=== PATIENT | female | born 1960 | race Caucasian/White ===

== ENCOUNTER 2023-03-26 08:26 | Outpatient (RCR) | payer OTHER, SELFPAY | END 2023-03-26 23:59 | disposition home or self-care (01) | LOC: RPT 08:26 | PROVIDERS: ATTENDING PHYSICIAN Internal Medicine Gastroenterology; PRIMARYCARE PHYSICIAN Family Medicine | DX: M62.89 Other specified disorders of muscle (principal) | CPT/HCPCS: 97162; 97535 ==

== ENCOUNTER 2023-04-29 17:49 | Outpatient (RCR) | payer OTHER, SELFPAY | END 2023-04-29 23:59 | disposition home or self-care (01) | LOC: RPT 17:49 | PROVIDERS: ATTENDING PHYSICIAN Internal Medicine Gastroenterology; PRIMARYCARE PHYSICIAN Family Medicine | DX: M62.89 Other specified disorders of muscle (principal); Z73.6 Limitation of activities due to disability; R10.2 Pelvic and perineal pain; R10.30 Lower abdominal pain, unspecified | CPT/HCPCS: 97110 ==

== ENCOUNTER 2023-06-10 17:41 | Outpatient (RCR) | payer OTHER, SELFPAY | END 2023-06-10 23:59 | disposition home or self-care (01) | LOC: RPT 17:41 | PROVIDERS: ATTENDING PHYSICIAN Internal Medicine Gastroenterology; PRIMARYCARE PHYSICIAN Family Medicine | DX: M62.89 Other specified disorders of muscle (principal); Z73.6 Limitation of activities due to disability | CPT/HCPCS: 97110 ==

== ENCOUNTER 2023-08-29 20:28 | Inpatient (IN) | payer OTHER, SELFPAY ==
[2023-08-29] VITALS (12 sets, daily range): BP systolic 67–98; BP diastolic 55–62
[2023-08-29 16:12] LABS: Urine Albumin Trace (Neg - Trace); Urine Bilirubin 1+ (Negative); Urine Character Slightly Cloudy (Clear); Urine Color Yellow; Urine Glucose Negative (Negative); Urine Ketone Negative (Negative); Urine Leukocyte 2+ (Negative); Urine Nitrite Negative (Negative); Urine Occult Blood Trace (Negative); Urine Specific Gravity 1.015 (<1.030); Urine Urobilinogen 1+ (Neg - 1+)
[2023-08-29 16:21] LABS: ALT (SGPT) 85 U/L (0-35); AST (SGOT) 71 U/L (14-36); Alkaline Phosphatase 107 U/L (38-126); Blood Urea Nitrogen 21 mg/dl (7-17); Calcium 9.4 mg/dl (8.4-10.2); Carbon Dioxide 19 mmol/L (22-30); Chloride 107 mmol/L (98-107); Glucose 110 mg/dl (70-99); Lipase 48 U/L (23-300); Sodium 137 mmol/L (135-145); Total Bilirubin 1.1 mg/dl (0.2-1.3)
[2023-08-29 16:33] LABS: Urine Bacteria Many (Negative); Urine Red Blood Cell 0-2 /HPF (0-2); Urine Squamous Cell 16-20 /LPF (Few); Urine White Cell >100 /HPF (0-5)
--- NOTE | 2023-08-29 17:30 | ED.GENMED ---
History of Present Illness
General
Chief Complaint: Flank Pain
Time Seen by Provider: 08/29/23 17:27
Travel History
Have you had any contact with someone who has COVID-19?: No
Do you have any symptoms of coronavirus? Fever > 100 degrees, chills, cough, shortness of breath, sore throat, loss of taste or smell, muscle aches, or headache?: No
History of Present Illness
History of Present Illness:
HPI: Patient presents with left flank pain and weakness. She also reports history of sepsis related to kidney stone last February. She states that her blood pressure is normally low and is found to be hypotensive here. She has been having
urinary urgency.
EXAM:
GENERAL: Appears somewhat weak and debilitated, hypotensive
HEENT: Slightly dry oral oral mucosa
CARDIOVASCULAR: No murmurs, normal heart rate, regular rhythm, No chest wall tenderness
PULMONARY: No respiratory distress, breath sounds are clear and equal
ABDOMEN: Soft with no peritoneal signs, no tenderness, mild left CVA tenderness
NEUROLOGIC: Excellent strength all extremities, no coordination deficits
PSYCHIATRIC: Appropriate mental status, normal insight and judgement
EXTREMITIES: Nontender, no edema, moves all extremities equally
SKIN: No rash, no lesions
TIME OF INITIAL ENCOUNTER: 5:30 PM
NUMBER AND COMPLEXITY OF PROBLEMS ADDRESSED AT THE ENCOUNTER
� Chronic conditions affecting care: History of migraines, Neville's esophagus, IBS, endometriosis, hypothyroidism, anxiety/depression, has had sepsis
� Acute Exacerbation and/or Progression of Chronic Illness: This is an acute problem
� Differential Diagnosis includes: UTI, sepsis, pyelonephritis, infected stone, bacteremia
AMOUNT AND/OR COMPLEXITY OF DATA TO BE REVIEWED AND ANALYZED
� I performed an independent evaluation of and my interpretation is:
EKG:
CT: CT of the abdomen pelvis personally viewed and she does have a 3 mm stone at the distal left ureter.
X-rays:
Laboratory Studies: White count 17.7, hemoglobin 13.2 bicarb slightly low at 19, creatinine 1.2, mild transaminase elevation, 2+ leukocyte esterase along with greater than 100 white cells per high-power field on urinalysis,
lactic is 1.1
Other:
� Review of other/old records: The patient was admitted with pyelonephritis 6 months ago related to a stone on the right side of the right ureter and had ureteral stent placed at that time�was found to have a Klebsiella UTI at
that time and had CHINEDU.
� Clinical information was obtained by an independent historian: I spoke to
� Prescriptions/Medications Considered but not given:
� Further testing considered but not performed:
RISK OF COMPLICATIONS AND/OR MORBIDITY OR MORTALITY OF PATIENT MANAGEMENT
� Social determinants of health affecting care:
� Discussion with other providers: I discussed case with Dr. Beaver who will come in for placement and I also discussed with Dr. Richardson for admission to the hospital
� Escalation of care including admission/observation vs risk of discharge considered: The patient has leukocytosis, is mildly hypotensive and received 2 L of IV fluid. I also gave Rocephin IV. The patient will stay n.p.o. and
will receive stent tonight and be admitted to the hospital. Repeat blood pressures have primarily been in the 90s over 60s.
Past History
Past History
ED Past Medical History: Hypothyroidism (migraines) and Other
ED Past Surgical History: Urological
Social History
Personal:
Living: with family
Phy Exam
Physical Exam
Physical Exam:
See HPI
Course
Orders/Labs/Results
Orders:
Orders
08/29/23 15:45
CMP [Comprehensive Metabolic Panel] Urgent
Lipase Urgent
Blood Culture Routine
RICCI Source: Blood/Venous
Specimen Description:
Date Specimen was Collected: 08/29/23
Time Specimen was Collected: 15:22
08/29/23 16:02
Urinalysis Reflex To Culture Urgent
Date Specimen was Collected: 08/29/23
Time Specimen was Collected: 15:22
Urine Microscopic Reflex Cult Urgent
Urine Culture Urgent
RICCI Source: U
Specimen Description:
Date Specimen was Collected: 08/29/23
Time Specimen was Collected: 15:22
08/29/23 17:31
0.9% Sodium Chloride 1000 ml [Nss] 1,000 ml IV BOLUS
08/29/23 17:34
0.9% Sodium Chloride 1000 ml [Nss] 1,000 ml IV BOLUS
08/29/23 17:35
CT Abd/pel Without Iv Or Oral Urgent
Comment:
Reason For Exam: L flank pain,
08/29/23 17:42
CefTRIAXone [Rocephin] 1,000 mg IV NOW STA
08/29/23 17:44
Complete Blood Count/With Diff Urgent
Lactic Acid Urgent
Abnormal Lab Results
08/29/23 08/29/23 08/29/23
15:45 16:02 17:44
WBC 17.7 H 10^3/uL
(4.8-10.8)
MCH 31.3 H pg
(27.0-31.0)
MPV 11.0 H fL
(7.4-10.4)
Abs Immat Gran (auto) 0.1 H 10^3/uL
(0-0.05)
Absolute Neuts (auto) 14.4 H 10^3/uL
(1.4-6.5)
Absolute Monos (auto) 1.8 H 10^3/uL
(0.1-0.6)
Neutrophils % 81.4 H %
(42.2-75.2)
Lymphocytes % 7.3 L %
(20.5-51.1)
Monocytes % 10.2 H %
(1.7-9.3)
Carbon Dioxide 19 L mmol/L
(22-30)
BUN 21 H mg/dl
(7-17)
Creatinine 1.2 H mg/dL
(0.6-1.0)
Glucose 110 H mg/dl
(70-99)
AST 71 H U/L
(14-36)
ALT 85 H U/L
(0-35)
Ur Occult Blood Reflex Trace A
(Negative)
Urine Bilirubin 1+ A
(Negative)
Leukocyte Esterase Rfl 2+ A
(Negative)
Urine WBC (Reflex) >100 A /HPF
(0-5)
Urine Bacteria (Reflex) Many A
(Negative)
08/29/23 17:44
08/29/23 15:45
Vital Signs
Initial and Last Documented VS:
Initial Vital Signs
Temp Pulse Resp BP Pulse Ox
99.4 F 107 16 91/58 96
08/29/23 15:17 08/29/23 15:17 08/29/23 15:17 08/29/23 15:17 08/29/23 15:17
Last Documented Vital Signs
Temp Pulse Resp BP Pulse Ox
99.4 F 86 16 95/58 99
08/29/23 15:17 08/29/23 18:15 08/29/23 18:15 08/29/23 18:00 08/29/23 18:15
*Critical Care Note
Total Time (30-74mins, 75-104mins- exclusive of procedures): Not Applicable
ED Attending Note
-
Portions of this chart may have been created with voice recognition software.� Occasional wrong word or��sound alike� substitutions may have occurred due to the inherent limitations of voice recognition software.
Discharge Plan
Departure
Patient Disposition: Admit
Date of Disposition: 08/29/23
Time of Disposition: 19:45
Presentation/result/management discussed w/ accepting MD/DO: Hospitalist
Patient with high blood pressure during this ER visit?: Yes
Discharge Problem:
Left ureteral stone
Prescriptions:
No Action
levothyroxine 88 MCG tablet
88 mcg PO DAILY
diazepam 5 MG tablet
5 mg PO HS
Patient Comments:
02/15/2023: last filled 01/22/23, 30 tabs for 30 days from [facility]
cetirizine [Zyrtec] 10 mg Tablet
10 mg PO DAILY PRN (Reason: allergies)
clonazepam 0.5 mg tablet
0.5 mg PO HS PRN (Reason: sleep/anxiety)
Patient Comments:
02/15/2023: last filled 12/02/22, 25 tabs for 25 days from [facility]
venlafaxine 150 mg capsule,extended release 24hr
150 mg PO BID
acyclovir 400 mg tablet
400 mg PO BID
omeprazole 40 mg capsule,delayed release(DR/EC)
40 mg PO DAILY
topiramate 200 mg tablet
200 mg PO BID
docusate sodium 100 mg Capsule
100 mg PO BID Qty: 0 0RF
ferrous sulfate [FeroSul] 325 mg (65 mg iron) Tablet
325 mg PO DAILY Qty: 0 0RF
acetaminophen 325 mg Tablet
650 mg PO Q4HPRN PRN (Reason: mild pain) Qty: 0 0RF
polyethylene glycol 3350 [HealthyLax] 17 gram Powder In Packet
17 g PO DAILY Qty: 0 0RF
cephalexin 500 mg capsule
1,000 mg PO Q8H Qty: 48 0RF
Referrals:
Haritha Sarabia MD [Family Provider] -
Interventions
Interventions:
*Risk Screen - Suicide Last Done: 08/29/23 18:18
*General Assessment Last Done: 08/29/23 18:18
*Neglect/Abuse Screening Last Done: 08/29/23 18:18
ED- Fall Risk Assessment Last Done: 08/29/23 18:18
*ED COVID-19 Vaccine History Last Done: 08/29/23 15:17
MN-Rikfgw-Rqknywugbu Assessment Last Done: 08/29/23 18:17
ED-Female Genitourinary Assessment Last Done: 08/29/23 18:17
Discharge Date and Time
Print Language: COLOMBIAN
[2023-08-29] MEDS: NSS 1000 IV ×3 (17:46→22:26)
[2023-08-29 17:49] LABS: % Basophils 0.5 % (0-2); % Eosinophils 0.1 % (0-6); % Immature Granulocytes 0.5 % (0-0.5); % Lymphocytes 7.3 % (20.5-51.1); % Monocytes 10.2 % (1.7-9.3); % Neutrophils 81.4 % (42.2-75.2); Absolute Basophils 0.1 10^3/uL (0-0.2); Absolute Immature Granulocytes 0.1 10^3/uL (0-0.05); Absolute Lymphocytes 1.3 10^3/uL (1.2-3.4); Absolute Monocytes 1.8 10^3/uL (0.1-0.6); Absolute Neutrophils 14.4 10^3/uL (1.4-6.5); Hematocrit 38.7 % (37.0-47.0); Hemoglobin 13.2 g/dL (12.0-16.0); Mean Corp Hgb Conc. 34.1 g/dL (33.0-37.0); Mean Corpuscular Hgb 31.3 pg (27.0-31.0); Mean Corpuscular Volume 91.7 fL (81.0-99.0); Nucleated Red Blood Cells % 0 %; Platelet Count 227 10^3/uL (130-400); Red Blood Cell Count 4.22 10^6/uL (4.20-5.40); Red Cell Dist. Width 14.2 % (11.5-14.5); White Blood Cell Count 17.7 10^3/uL (4.8-10.8)
[2023-08-29] MEDS: ROCEPHIN 1000 MG IV (17:49)
[2023-08-29 18:06] LABS: Lactic Acid 1.1 mmol/L (0.7-2.0)
--- NOTE | 2023-08-29 20:19 | CONS.URO ---
Consultation
-
Date/Time Consultation Requested: 08/29/231944
Date/Time Consultation Performed: 08/29/232009
Requesting Provider: ER
Performing Provider: Sd
Reason for Consultation: urosepsis, obstructing left ureteral stone
Medical History
History of Present Illness
63F presents to ER w/ 1 week of left flank pain, urgency, fatigue, chills, and subjective fevers at home.
Prior urologic h/o Klebsiella urosepsis with bacteremia requiring emergent right ureteral stent placement (02/16/23).
Notes baseline low BPs, however SBP noted to be 90 in ER w/ persistent hypotension.
Received IVF resuscitation and IV Ceftriaxone.
02/16/23: (emergent) s/p cysto + right stent placement (@[facility]).
03/04/23: s/p right URS/laser lithotripsy/stone extraction/stent exchange (@[facility]).
Stone analysis => 50% CaPhos, 50% CaOx.
Past Medical History
Past Medical History: HTN, Hypothyroidism and Other (migraines, nephrolithiasis)
Past Surgical History: Appendectomy and Urological ( 02/16/23: (emergent) s/p cysto + right stent placement, 05/05/22: s/p right URS/laser lithotripsy/stone extraction/stent exchange)
Social History
Tobacco: Non-smoker
Drug: None
Personal:
Living: With Family
Employment: Retired
Family History
Family History: Reviewed & Not Pertinent
Allergies/Home Medications
Allergies
Allergy/AdvReac Type Severity Reaction Status Date / Time
azithromycin [From Zithromax] Allergy Hives Verified 02/15/23 12:55
metoclopramide HCl Allergy anxiety Verified 02/15/23 17:13
[From Reglan] attack
Home Medications
�Medication �Instructions �Recorded �Confirmed �Type
diazepam 5 mg tablet 5 mg PO HS ANXIETY/SLEEP 04/26/15 08/29/23 History
levothyroxine 88 mcg tablet 88 mcg PO DAILY HYPOTHYROIDISM 04/26/15 08/29/23 History
acyclovir 400 mg tablet 400 mg PO BID HERPES PROPHYLAXIS 02/15/23 08/29/23 History
cetirizine 10 mg tablet (Zyrtec) 10 mg PO DAILY PRN allergies 02/15/23 08/29/23 History
clonazepam 0.5 mg tablet 0.5 mg PO HS PRN sleep/anxiety 02/15/23 08/29/23 History
omeprazole 40 mg capsule,delayed 40 mg PO DAILY Gastrointestinal 02/15/23 08/29/23 History
release Issue
topiramate 200 mg tablet 200 mg PO BID MIGRAINES 02/15/23 08/29/23 History
venlafaxine 150 mg 150 mg PO BID DEPRESSION/ANXIETY 02/15/23 08/29/23 History
capsule,extended release 24 hr
acetaminophen 325 mg tablet 650 mg (2 x 325 mg) PO Q4HPRN PRN 02/18/23 08/29/23 Rx
mild pain #0 tabs
docusate sodium 100 mg capsule 100 mg PO BID Constipation #0 caps 02/18/23 08/29/23 Rx
ferrous sulfate 325 mg (65 mg 325 mg PO DAILY anemia #0 tabs 02/18/23 08/29/23 Rx
iron) tablet (FeroSul)
polyethylene glycol 3350 17 gram 17 g PO DAILY Constipation #0 ea 02/18/23 08/29/23 Rx
oral powder packet (HealthyLax)
Review of Systems
-
History Source: Patient and Family
A 12 point Review of Systems was completed except as noted: Yes
Constitutional: Reports Fever and Chills
EENT: Reports No Symptoms
Respiratory: Reports No Symptoms
Cardiac: Reports No Symptoms
Abdomen/GI: Reports No Symptoms
: Reports Flank Pain and Urgency
Musculoskeletal: Reports No Symptoms
Skin: Reports No Symptoms
Neurological: Reports No Symptoms
Endocrine: Reports No Symptoms
Hematologic/Lymphatic: Reports No Symptoms
Psych: Reports No Symptoms
Physical Exam
Vital Signs
Vital Signs
Temp Pulse Resp BP Pulse Ox
99.4 F 86 16 98/60 100
08/29/23 15:17 08/29/23 18:15 08/29/23 18:15 08/29/23 19:39 08/29/23 18:17
Lab / Testing Results
Laboratory Results
08/29/23 17:44
08/29/23 15:45
Physical Exam
General: No Apparent Distress, Chills and Poor Appetite
HEENT: Normocephalic and Anicteric
Respiratory: Non Labored Respirations
Cardiac: S1/S2
Breast: Deferred by me
GI: Soft, Non Tender and Non Distended
Rectal: Deferred by Provider
Musculoskeletal: No Edema
Skin: Warm and Dry
Neuro: AO x 3, No Motor Deficits and Nonfocal/Grossly Intact
Hematologic/Lymphatic: No Lymphadenopathy
Psych: Calm and Intact Judgement
Assessment / Plan
-
Urosepsis
Leukocytosis
Obstructing left ureteral stone
Non-obstructing left renal stones
H/o Klebsiella bacteremia
CTAP w/o IV contrast =>
3 mm stone in mid left ureter w/ proximal moderate hydroureteronephrosis and mild perinephric stranding, consistent with obstructive uropathy.
There are other nonobstructing intrarenal calculi on the left.
On the right, small nonobstructing lower pole calculus. No right ureteral calculus or obstructive uropathy.
WBC 17.7
Cr 1.2
Detailed discussion including SDM had w/ patient and spouse regarding patient's diagnosis of evolving urosepsis and obstructive uropathy of the left kidney w/ serologic and radiographic evidence.
Reviewed risks, benefits, alternatives, and potential complications of cysto + stent placement including but not limited to urosepsis, bleeding, ureteral/bladder injury, risk of ureteral stricture formation, urine leak, need for additional
procedures.\\
Informed consent obtained/signed.
- Maintain NPO
- To OR emergently for cysto + left stent placement
- IV Ceftriaxone given in ER
- Surgical consent signed on chart
- Left laterality marked
D/w ER physician.
D/w Hospitalist.
D/w Anesthesiology.
D/w patient and spouse.
Data Reviewed
-
Total Time Spent with Patient (in minutes): 75
CT Scan: Image personally visualized and interpreted, Report Reviewed by Me, Discussed with Physician, Discussed with Patient and Discussed with Family
Lab Data: Labs Reviewed, Discussed with Physician, Discussed with Patient and Discussed with Family
Old Records: Reviewed
--- NOTE | 2023-08-29 20:21 | HPS.HSE ---
Family Physician
-
Family Physician: Haritha Sarabia MD
Chief Complaint
-
L Flank Pain
History of Present Illness
Patient is a 63y F with PMH significant for anxiety / depression, migraines and nephrolithiasis who presents to ED complaining of left flank pain x 1 week. Patient states that symptoms started last weekend and have been fairly consistent since
that time. Pain is in the L flank with radiation into the anterior abdomen and the groin. Pos nausea without emesis. No noted hematuria or dysuria. Patient reports general malaise, but no fevers / chills / etc.
Patient had similar symptoms in 02/2023 and was treated with ureteral stenting at that time.
Medical History
Past Medical History
Past Medical History: Reports Other
Additional Past Medical History:
Migraines
Hypothyroidism
Depression / Anxiety
GERD / Neville's
H/O Genital Herpes
Chronic Constipation
Nephrolithiasis
Past Surgical History: Reports Other
Additional Past Surgical History:
Left knee surgery
Right Ureteroscopy / Stent
Social History
Tobacco: Non-smoker
Alcohol: Occasional
Drug: None
Living: With Family
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
Family History
Family History: Other (mom 88 and father 93 healthy)
Allergies / Home Medications
Allergies reflects when Allergies were last updated in [employer].
Home Medications with original date entered in [employer]
Allergy/Medication List:
Allergies
Allergy/AdvReac Type Severity Reaction Status Date / Time
azithromycin [From Zithromax] Allergy Hives Verified 02/15/23 12:55
metoclopramide HCl Allergy anxiety Verified 02/15/23 17:13
[From Reglan] attack
Home Medications
diazepam 5 mg tablet 5 mg PO HS ANXIETY/SLEEP 04/26/15
levothyroxine 88 mcg tablet 88 mcg PO DAILY HYPOTHYROIDISM 04/26/15
acyclovir 400 mg tablet 400 mg PO BID HERPES PROPHYLAXIS 02/15/23
cetirizine 10 mg tablet (Zyrtec) 10 mg PO DAILY PRN allergies 02/15/23
clonazepam 0.5 mg tablet 0.5 mg PO HS PRN sleep/anxiety 02/15/23
omeprazole 40 mg capsule,delayed release 40 mg PO DAILY Gastrointestinal Issue 02/15/23
topiramate 200 mg tablet 200 mg PO BID MIGRAINES 02/15/23
venlafaxine 150 mg capsule,extended release 24 hr 150 mg PO BID DEPRESSION/ANXIETY 02/15/23
acetaminophen 325 mg tablet 650 mg (2 x 325 mg) PO Q4HPRN PRN mild pain #0 tabs 02/18/23
docusate sodium 100 mg capsule 100 mg PO BID Constipation #0 caps 02/18/23
ferrous sulfate 325 mg (65 mg iron) tablet (FeroSul) 325 mg PO DAILY anemia #0 tabs 02/18/23
polyethylene glycol 3350 17 gram oral powder packet (HealthyLax) 17 g PO DAILY Constipation #0 ea 02/18/23
Review of Systems
-
History Source: Patient
A 12 point ROS was completed and negative except as noted: Yes
Constitutional: Reports Fatigue; Denies Fever or Chills
Respiratory: Denies Cough or Trouble Breathing
Cardiac: Denies Chest Pain or Palpitations
Abdomen/GI: Reports Abdominal Pain and Nausea; Denies Vomiting, Diarrhea, Constipated, Bloody Stools or Black Stools
: Reports Flank Pain; Denies Dysuria or Frequency
Neurological: Denies Dizzy or Headache
Psych: Denies Depression or Anxiety
Physical Exam
Vital Signs
Vital Signs
Temp Pulse Resp BP Pulse Ox
99.4 F 86 16 98/60 100
08/29/23 15:17 08/29/23 18:15 08/29/23 18:15 08/29/23 19:39 08/29/23 18:17
Physical Exam
General: Other (63y F in mild distress due to flank pain.)
HEENT: Moist mucous membranes and PERRLA
Respiratory: Clear; No Wheezes, Rales or Rhonchi
Cardiac: S1/S2 and Regular Rhythm; No Murmur
GI: Soft, Non Distended, Normal Bowel Sounds and Other (Mild tenderness diffusely. No rebound / guarding.)
Genito-urinary: Other (Pos L CVAT.)
Neuro: AO x 3
Laboratory Results
-
08/29/23 17:44
08/29/23 15:45
Laboratory Results
Lactic Acid 1.1 mmol/L (0.7-2.0) 08/29/23 17:44
Total Bilirubin 1.1 mg/dl (0.2-1.3) 08/29/23 15:45
AST 71 U/L (14-36) H 08/29/23 15:45
ALT 85 U/L (0-35) H 08/29/23 15:45
Alkaline Phosphatase 107 U/L (38-126) 08/29/23 15:45
Lipase 48 U/L (23-300) 08/29/23 15:45
Impression/Plan
-
A/P: Patient is a 63y F with PMH significant for migraines, anxiety and prior kidney stone who presents to ED complaining of one week of L flank pain.
Left Ureterolithiasis
Sepsis secondary to suspected proximal UTI
- Admit for further evaluation and treatment.
- Patient presents with tachycardia, leukocytosis and urinary obstruction with high likelihood of proximal infection.
- IV abx with ceftriaxone pending culture data.
- Supportive care with pain control, IVFs, etc.
- Tamsulosin / strain urine.
- Urology evaluation and probable OR / stent placement.
Chronic Constipation
- Again noted on today's CT scan.
- Continue bowel regimen and adjust as needed for positive effect.
Migraine Headaches
- Continue prophylactic regimen with Topamax.
Anxiety / Depression
- Continue Effexor.
- Duplication of BZD therapy noted - will increase diazepam dose and stop clonazepam for now.
- Continue to titrate single agent as needed for symptom control.
GERD / Neville's Esophagus
- Stable. Continue daily PPI.
Hypothyroidism
- Stable. Continue T4 supplementation.
History of HSV
- Continue acyclovir prophylaxis.
DVT Prophylaxis: SCDs
Code Status: Full
[2023-08-29] MEDS: DILAUDID 0.5 MG IV (20:35)
--- NOTE | 2023-08-29 21:25 | W.IMMPOSTOP ---
Surgical Immed Post Op Note
-
Primary Surgeon: Sd
Pre-op Diagnosis: Urosepsis, obstructing left ureteral stones
Post-op Diagnosis: Same
Procedure Performed: cysto + left stent placement
Anesthesia Type: LMA
Specimen / Cultures: None/None
Estimated Blood Loss: Negligible
Drains: 6Fr x 24 cm JJ left ureteral stent
Complications: None
Operative Findings: Final KUB + cysto demonstrating appropriate left ureteral stent position.
Debris-filled urine in bladder c/w UTI, significant inflammation of urothelium and left UO.
--- NOTE | 2023-08-29 21:46 | SUR.PHASEI ---
Rec'd unresponsive on stretcher with HOb elevated low fowlers, tiffanie airway well, IV infusing rapidly, tiffanie well
--- NOTE | 2023-08-29 22:03 | SUR.PHASEI ---
More alert, denies pain, oriented x 3 by RN, positioned for comfort, warm blankets given tiffanie well
--- NOTE | 2023-08-29 22:25 | SUR.PHASEI ---
Lightly dozing, denies c/o
--- NOTE | 2023-08-29 22:45 | PTCARENOTE ---
Pt was received from PACU at 2245. Pt was pulled over from the stretcher to the unit bed. Pt is AAOx3. BP low 88/58 on arrival, pulse 91, temp 97.9. Will keep monitoring. Low BP noted in PACU. Care plan reviewed with pt. Small snack provided at the
bedtime. at the bedside. Pt resting in bed, left flank pain tolerable per pt.
[2023-08-29] MEDS: VALIUM 7.5 MG PO (23:33)
[2023-08-29] MEDS: SENOKOT 17.1999999999999993 MG PO (23:33)
[2023-08-30] VITALS (9 sets, daily range): BP systolic 90–112; BP diastolic 51–68
[2023-08-30] MEDS: SYNTHROID 88 MCG PO (05:44)
[2023-08-30 06:04] LABS: Hematocrit 30.8 % (37.0-47.0); Hemoglobin 10.6 g/dL (12.0-16.0); Mean Corp Hgb Conc. 34.4 g/dL (33.0-37.0); Mean Corpuscular Hgb 31.5 pg (27.0-31.0); Mean Corpuscular Volume 91.7 fL (81.0-99.0); Mean Platelet Volume 12.2 fL (7.4-10.4); Platelet Count 187 10^3/uL (130-400); Red Blood Cell Count 3.36 10^6/uL (4.20-5.40); Red Cell Dist. Width 14.2 % (11.5-14.5); White Blood Cell Count 11.6 10^3/uL (4.8-10.8)
[2023-08-30 06:33] LABS: Blood Urea Nitrogen 17 mg/dl (7-17); Calcium 8.2 mg/dl (8.4-10.2); Carbon Dioxide 18 mmol/L (22-30); Chloride 115 mmol/L (98-107); Glucose 156 mg/dl (70-99); Potassium 3.9 mmol/L (3.5-5.1); Sodium 139 mmol/L (135-145); eGFR > 60.00
[2023-08-30] MEDS: FLOMAX 0.400000000000000022 MG PO (07:57)
[2023-08-30] MEDS: EFFEXOR XR 150 MG PO ×2 (07:57→20:52)
[2023-08-30] MEDS: PROTONIX 40 MG PO (07:57)
[2023-08-30] MEDS: TOPAMAX 200 MG PO ×2 (07:57→20:52)
[2023-08-30] MEDS: ZOVIRAX 400 MG PO ×2 (07:58→20:52)
[2023-08-30] MEDS: NSS 1000 IV (07:58)
[2023-08-30] MEDS: COLACE 100 MG PO ×2 (07:58→20:52)
--- NOTE | 2023-08-30 12:41 | W.PN.HOSP.TC ---
Today's Communication/Plan
-
continue Abx pending cultures
cap IVF
Assessment / Plan
Assessment / Plan
Assessment:
Left Ureterolithiasis
Sepsis secondary to suspected proximal complicated UTI (tachycardia, leukocytosis)
- s/p OR 08/28: cysto + left stent placement
- continue IV Abx; follow cultures
- pain control
- Urology following
CHNIEDU
- improved with IVF
Chronic Constipation
- noted on CT scan.
- Continue bowel regimen and adjust as needed for positive effect.
Migraine Headaches
- Continue prophylactic regimen with Topamax.
Anxiety / Depression
- Continue Effexor.
- Duplication of BZD therapy noted - will increase diazepam dose and stop clonazepam for now.
- Continue to titrate single agent as needed for symptom control.
GERD / Neville's Esophagus
- Stable. Continue daily PPI.
Hypothyroidism
- Stable. Continue T4 supplementation.
History of HSV
- Continue acyclovir prophylaxis.
DVT Prophylaxis: SCDs
Code Status: Full
Anticipated Discharge: Within 24 hours
Subjective/Interval History
-
Date of Service: August 30, 2023
feels improved, denies any complaints.
Pain is 4/10 from 8/10 on admission
Objective Data
-
Labs:
Laboratory Results
08/30/23
05:09
WBC 11.6 H
Hgb 10.6 L
Hct 30.8 L
Plt Count 187
Sodium 139
Potassium 3.9
Chloride 115 H
Carbon Dioxide 18 L
BUN 17
Creatinine 0.8
Glucose 156 H
Calcium 8.2 L
Vital Signs:
Vital Signs
Temp Pulse Resp BP Pulse Ox
97.5 F 69 16 91/57 99
08/30/23 11:33 08/30/23 11:33 08/30/23 11:33 08/30/23 11:33 08/30/23 11:33
I&O
08/29/23 08/30/23 08/31/23
06:59 06:59 06:59
Intake Total 1659
Balance 1659
Physical Exam
-
General: No Apparent Distress
HEENT: Normocephalic and Atraumatic
Respiratory: Negative Wheezes
Cardiac: Regular Rhythm and S1/S2
GI: Soft
Genito-urinary: No Costovertebral Tender
Neuro: AO x 3
Psych: Calm
Data Reviewed
-
Total Time Spent with Patient (in minutes): 42
Labs: Labs Reviewed by me
[2023-08-30 13:54] LABS: ALT (SGPT) 50 U/L (0-35); AST (SGOT) 31 U/L (14-36); Albumin 2.7 g/dl (3.5-5.0); Alkaline Phosphatase 81 U/L (38-126); Total Bilirubin 0.4 mg/dl (0.2-1.3); Total Protein 5.1 g/dl (6.3-8.2)
--- NOTE | 2023-08-30 14:41 | CM ---
Reviewed the chart notes and spoke with the patient's spouse at the bedside. The patient resides with her spouse in a two story home with one step to enter. The master bedroom is on the first level. The patient has a wheelchair. The patient has
not had VN nor been to a SNF in the past. The patient's pharmacy of choice [facility]. CM continues to be available to patient/family and is monitoring medical plan for needs at discharge.
Plan: Discharge to home when medically stable. No needs anticipated.
[2023-08-30] MEDS: ROCEPHIN 1000 MG IV (17:08)
[2023-08-30] MEDS: STERILE WATER FOR INJECTION 10 ML IV (17:09)
[2023-08-30] MEDS: Pyridium 100 MG PO (18:38)
--- NOTE | 2023-08-30 21:00 | PTCARENOTE ---
Upon assessment, patient found to have a left facial droop. Unclear when this started - states she didn't notice it prior to this hospital stay. Pt states she has a possible hx of trigeminal neuralgia vs 'a palsy'. No other symptoms.
[2023-08-30] MEDS: VALIUM 7.5 MG PO (22:21)
[2023-08-30] MEDS: SENOKOT 17.1999999999999993 MG PO (22:21)
[2023-08-31] MEDS: SYNTHROID 88 MCG PO (05:10)
[2023-08-31 06:15] LABS: % Basophils 0.6 % (0-2); % Eosinophils 2.3 % (0-6); % Immature Granulocytes 0.3 % (0-0.5); % Lymphocytes 17.8 % (20.5-51.1); % Monocytes 10.4 % (1.7-9.3); % Neutrophils 68.6 % (42.2-75.2); Absolute Basophils 0.1 10^3/uL (0-0.2); Absolute Eosinophils 0.2 10^3/uL (0-0.7); Absolute Lymphocytes 1.8 10^3/uL (1.2-3.4); Absolute Monocytes 1.1 10^3/uL (0.1-0.6); Absolute Neutrophils 6.9 10^3/uL (1.4-6.5); Hematocrit 30.7 % (37.0-47.0); Hemoglobin 10.5 g/dL (12.0-16.0); Mean Corp Hgb Conc. 34.2 g/dL (33.0-37.0); Mean Corpuscular Hgb 31.4 pg (27.0-31.0); Mean Corpuscular Volume 91.9 fL (81.0-99.0); Mean Platelet Volume 12.1 fL (7.4-10.4); Nucleated Red Blood Cells % 0 %; Platelet Count 198 10^3/uL (130-400); Red Blood Cell Count 3.34 10^6/uL (4.20-5.40); Red Cell Dist. Width 13.8 % (11.5-14.5); White Blood Cell Count 10.1 10^3/uL (4.8-10.8)
[2023-08-31 06:36] LABS: ALT (SGPT) 43 U/L (0-35); AST (SGOT) 35 U/L (14-36); Albumin 2.6 g/dl (3.5-5.0); Alkaline Phosphatase 76 U/L (38-126); Blood Urea Nitrogen 14 mg/dl (7-17); Calcium 8.3 mg/dl (8.4-10.2); Carbon Dioxide 18 mmol/L (22-30); Chloride 115 mmol/L (98-107); Glucose 92 mg/dl (70-99); Potassium 3.4 mmol/L (3.5-5.1); Sodium 139 mmol/L (135-145); Total Bilirubin 0.4 mg/dl (0.2-1.3); Total Protein 5.1 g/dl (6.3-8.2); eGFR > 60.00
[2023-08-31 07:30] VITALS: BP 123/76
[2023-08-31] MEDS: FLOMAX 0.400000000000000022 MG PO (08:37)
[2023-08-31] MEDS: ZOVIRAX 400 MG PO ×2 (08:37→21:24)
[2023-08-31] MEDS: TYLENOL 650 MG PO (08:37)
[2023-08-31] MEDS: TOPAMAX 200 MG PO ×2 (08:37→21:25)
[2023-08-31] MEDS: PROTONIX 40 MG PO (08:37)
[2023-08-31] MEDS: COLACE 100 MG PO ×2 (08:38→21:25)
[2023-08-31] MEDS: EFFEXOR XR 150 MG PO ×2 (08:38→21:25)
[2023-08-31] MEDS: KCL 40 MEQ PO (09:26)
--- NOTE | 2023-08-31 12:00 | W.PN.HOSP.TC ---
Today's Communication/Plan
-
symptomatic control of pain/fevers
if remains persistent, will repeat CT (D/w Urology)
Continue Abx pending cultures
Assessment / Plan
Assessment / Plan
Assessment:
Left Ureterolithiasis
Sepsis secondary to suspected proximal complicated UTI (tachycardia, leukocytosis)
- s/p OR 08/28: cysto + left stent placement
- continue IV Rocephin; follow cultures
- pain control with Pyridium and prn Toradol
- Urology following
CHINEDU
- improved with IVF
Chronic Constipation
- noted on CT scan.
- Continue bowel regimen; last BM 08/29
Migraine Headaches
- Continue prophylactic regimen with Topamax.
Anxiety / Depression
- Continue Effexor.
- Duplication of BZD therapy noted - will increase diazepam dose and stop clonazepam for now.
- Continue to titrate single agent as needed for symptom control.
GERD / Neville's Esophagus
- Stable. continue daily PPI.
Hypothyroidism
- Stable. continue T4 supplementation.
History of HSV
- continue acyclovir prophylaxis.
Hypokalemia - replete prn
DVT Prophylaxis: SCDs
Code Status: Full
Anticipated Discharge: 24 - 48 hours
Subjective/Interval History
-
Date of Service: August 31, 2023
she reports some urinary frequency, improving flank pain
febrile to 100.5 this AM
Objective Data
-
Labs:
Laboratory Results
08/31/23
05:37
WBC 10.1
Hgb 10.5 L
Hct 30.7 L
Plt Count 198
Sodium 139
Potassium 3.4 L
Chloride 115 H
Carbon Dioxide 18 L
BUN 14
Creatinine 0.8
Glucose 92
Calcium 8.3 L
Total Bilirubin 0.4
AST 35
ALT 43 H
Alkaline Phosphatase 76
Vital Signs:
Vital Signs
Temp Pulse Resp BP Pulse Ox
100.5 F H 102 20 123/76 100
08/31/23 07:30 08/31/23 07:30 08/31/23 07:30 08/31/23 07:30 08/30/23 23:35
I&O
08/30/23 08/31/23 09/01/23
06:59 06:59 06:59
Intake Total 0 / 1660 1919
Balance 1660 / 1660 1919 / 1919
Physical Exam
-
General: No Apparent Distress
HEENT: Normocephalic and Atraumatic
Respiratory: Negative Wheezes
Cardiac: Regular Rhythm and S1/S2
GI: Soft
Genito-urinary: Costovertebral Angle Tend (mild, L side)
Musculoskeletal: No Edema
Neuro: AO x 3
Hematologic / Lymphatic: No Lymphadenopathy
Psych: Calm
Data Reviewed
-
Total Time Spent with Patient (in minutes): 42
Labs: Labs Reviewed by me
--- NOTE | 2023-08-31 12:13 | CM ---
CM reviewed pt with Dr Hylton- ADC tomorrow
Per chart review and physician discussion, no dc needs anticipated
CM will continue to follow for dc planning should needs arise
Discharge Disposition- home, no needs
[2023-08-31 15:53] VITALS: BP 95/64
--- NOTE | 2023-08-31 16:29 | W.PN.UPDATE ---
Update Note
Progress Note Update
Obstructing left ureteral stone - s/p left stent placement 08/28
Urosepsis
CHINEDU - resolved
H/o Klebsiella bacteremia
Noted fevers and increased right flank pain this AM - improved this afternoon.
Feeling overall improved in last 48 hrs.
WBC: 10.1 (from 17.7)
Cr 0.8 (from 1.2)
UCx => GN bacilli
BCx => NG x48 hrs
Plan:
- Continue IV antibiotics pending UCx S/S for conversion to PO therapy
- Will F/U in 1-2 weeks for preop visit to discuss/schedule definitive stone surgery + repeat UCx
- Detrol LA added for stent-related discomfort
- If persistently febrile w/ worsening pain tomorrow, plan for CTAP w/ IV contrast
D/w Hospitalist.
D/w patient this afternoon.
[2023-08-31] MEDS: ROCEPHIN 1000 MG IV (17:21)
[2023-08-31] MEDS: STERILE WATER FOR INJECTION 10 ML IV (17:21)
[2023-08-31] MEDS: VALIUM 7.5 MG PO (21:24)
[2023-08-31] MEDS: SENOKOT 17.1999999999999993 MG PO (21:25)
[2023-08-31 23:01] VITALS: BP 111/78
--- NOTE | 2023-09-01 03:54 | DOWNTIME ---
There was a [employer] Sales Consultant Downtime on 09/01/2023 from 0100 to 09/01/2023 at 0337. Downtime documentation of patient's care, including medication administrations, has been reconciled in the electronic record per guidelines. Refer to the
patient's paper chart under the miscellaneous tab to see printed paper medication records and downtime forms.
[2023-09-01] MEDS: SYNTHROID 88 MCG PO (05:56)
[2023-09-01 07:00] LABS: % Basophils 0.7 % (0-2); % Eosinophils 6.3 % (0-6); % Immature Granulocytes 0.3 % (0-0.5); % Lymphocytes 25.2 % (20.5-51.1); % Monocytes 10.5 % (1.7-9.3); Absolute Eosinophils 0.4 10^3/uL (0-0.7); Absolute Lymphocytes 1.5 10^3/uL (1.2-3.4); Absolute Monocytes 0.6 10^3/uL (0.1-0.6); Absolute Neutrophils 3.5 10^3/uL (1.4-6.5); Hematocrit 33.7 % (37.0-47.0); Hemoglobin 11.2 g/dL (12.0-16.0); Mean Corp Hgb Conc. 33.2 g/dL (33.0-37.0); Mean Corpuscular Hgb 31.4 pg (27.0-31.0); Mean Corpuscular Volume 94.4 fL (81.0-99.0); Mean Platelet Volume 11.6 fL (7.4-10.4); Nucleated Red Blood Cells % 0 %; Platelet Count 240 10^3/uL (130-400); Red Blood Cell Count 3.57 10^6/uL (4.20-5.40); Red Cell Dist. Width 14.2 % (11.5-14.5); White Blood Cell Count 6.1 10^3/uL (4.8-10.8)
[2023-09-01 07:31] LABS: ALT (SGPT) 36 U/L (0-35); AST (SGOT) 24 U/L (14-36); Albumin 2.8 g/dl (3.5-5.0); Alkaline Phosphatase 78 U/L (38-126); Blood Urea Nitrogen 9 mg/dl (7-17); Calcium 8.7 mg/dl (8.4-10.2); Carbon Dioxide 20 mmol/L (22-30); Chloride 114 mmol/L (98-107); Estimated Creatinine Clearance 66 ml/min; Glucose 83 mg/dl (70-99); Potassium 3.7 mmol/L (3.5-5.1); Sodium 140 mmol/L (135-145); Total Bilirubin 0.4 mg/dl (0.2-1.3); Total Protein 5.2 g/dl (6.3-8.2); eGFR > 60.00
[2023-09-01 07:47] VITALS: BP 123/81
[2023-09-01] MEDS: KCL 40 MEQ PO (09:00)
[2023-09-01] MEDS: FLOMAX 0.400000000000000022 MG PO (09:00)
[2023-09-01] MEDS: ZOVIRAX 400 MG PO (09:00)
[2023-09-01] MEDS: TOPAMAX 200 MG PO (09:00)
[2023-09-01] MEDS: COLACE 100 MG PO (09:00)
[2023-09-01] MEDS: PROTONIX 40 MG PO (09:01)
[2023-09-01] MEDS: EFFEXOR XR 150 MG PO (09:01)
--- NOTE | 2023-09-01 10:36 | W.PN.HOSP.TC ---
Today's Communication/Plan
-
dc to home later today
Assessment / Plan
Assessment / Plan
Assessment:
Left Ureterolithiasis
Sepsis secondary to suspected proximal complicated UTI (tachycardia, leukocytosis)
- s/p OR 08/28: cysto + left stent placement
- Urine culture; Klebsiella Pneumoniae. DC on Cefdinir to complete 14 day course
- pain control with Pyridium and prn NSAIDs
- Urology follow up OP For stone procedure
CHINEDU
- improved with IVF
Chronic Constipation
- noted on CT scan.
- Continue bowel regimen; last BM 08/29
Migraine Headaches
- Continue prophylactic regimen with Topamax.
Anxiety / Depression
- Continue Effexor.
- Duplication of BZD therapy noted - will increase diazepam dose and stop clonazepam for now.
- Continue to titrate single agent as needed for symptom control.
GERD / Neville's Esophagus
- Stable. continue daily PPI.
Hypothyroidism
- Stable. continue T4 supplementation.
History of HSV
- continue acyclovir prophylaxis.
Hypokalemia - replete prn
DVT Prophylaxis: SCDs
Code Status: Full
More than 30 minutes spent in discharge including
Final examination of the patient
Summarizing hospital stay
Instructions for continuing care to all relevant caregivers
Preparation of discharge records, prescriptions, and referral forms
Total time spent (in minutes): 41
Anticipated Discharge: Today
Subjective/Interval History
-
Date of Service: September 01, 2023
flank pain improved
denies any fever/chills
Objective Data
-
Labs:
Laboratory Results
09/01/23
06:26
WBC 6.1
Hgb 11.2 L
Hct 33.7 L
Plt Count 240 D
Sodium 140
Potassium 3.7
Chloride 114 H
Carbon Dioxide 20 L
BUN 9
Creatinine 0.8
Glucose 83
Calcium 8.7
Total Bilirubin 0.4
AST 24
ALT 36 H
Alkaline Phosphatase 78
Vital Signs:
Vital Signs
Temp Pulse Resp BP Pulse Ox
98.5 F 85 18 123/81 99
09/01/23 07:47 09/01/23 07:47 09/01/23 07:47 09/01/23 07:47 09/01/23 07:47
I&O
08/31/23 09/01/23 09/02/23
06:59 06:59 06:59
Intake Total 1919 920 / 920
Balance 1919 920 / 920
Physical Exam
-
General: No Apparent Distress
HEENT: Normocephalic and Atraumatic
Respiratory: Negative Wheezes
Cardiac: Regular Rhythm and S1/S2
GI: Soft and Nontender
Musculoskeletal: No Edema
Neuro: AO x 3
Psych: Calm
Data Reviewed
-
Total Time Spent with Patient (in minutes): 41
Labs: Labs Reviewed by me
--- NOTE | 2023-09-01 10:42 | W.DS.TRANS ---
DC Summary - Revenue Investigator
-
Discharge Instructions:
Discharge Diagnosis/Procedures UTI with stone and stent placement 08/28
Diet Regular
Activity As tolerated
Bathing Restrictions None
Instructions:
Stand-Alone Forms:
Changes to Home Medications: No
Discharge Medications:
DC Medications w/original date entered in [facility]
diazepam 5 mg tablet 5 mg PO HS ANXIETY/SLEEP 04/26/15
levothyroxine 88 mcg tablet 88 mcg PO DAILY HYPOTHYROIDISM 04/26/15
acyclovir 400 mg tablet 400 mg PO BID HERPES PROPHYLAXIS 02/15/23
cetirizine 10 mg tablet (Zyrtec) 10 mg PO DAILY PRN allergies 02/15/23
clonazepam 0.5 mg tablet 0.5 mg PO HS PRN sleep/anxiety 02/15/23
omeprazole 40 mg capsule,delayed release 40 mg PO DAILY Gastrointestinal Issue 02/15/23
topiramate 200 mg tablet 200 mg PO BID MIGRAINES 02/15/23
venlafaxine 150 mg capsule,extended release 24 hr 150 mg PO BID DEPRESSION/ANXIETY 02/15/23
acetaminophen 325 mg tablet 650 mg (2 x 325 mg) PO Q4HPRN PRN mild pain #0 tabs 02/18/23
docusate sodium 100 mg capsule 100 mg PO BID Constipation #0 caps 02/18/23
ferrous sulfate 325 mg (65 mg iron) tablet (FeroSul) 325 mg PO DAILY anemia #0 tabs 02/18/23
polyethylene glycol 3350 17 gram oral powder packet (HealthyLax) 17 g PO DAILY Constipation #0 ea 02/18/23
cefdinir 300 mg capsule 300 mg PO Q12H #20 caps 09/01/23
phenazopyridine 100 mg tablet 100 mg PO TIDPRN PRN stent pain #20 tabs 09/01/23
tamsulosin 0.4 mg capsule 0.4 mg PO DAILY #30 caps 09/01/23
Home Medication Changes
Pending Results: No
Total time spent discharging patient (in min): 41
--- NOTE | 2023-09-01 11:23 | CM ---
Reviewed the chart notes and spoke with the patient at the bedside. The patient is for discharge today to home. No needs identified at this time. Spouse will provide transportation. CM continues to be available to patient/family and is
monitoring medical plan for needs at discharge.
Plan: Discharge to home today.
[2023-09-01] MEDS: STERILE WATER FOR INJECTION 10 ML IV (12:27)
[2023-09-01] MEDS: ROCEPHIN 1000 MG IV (12:28)
== END 2023-09-01 14:05 | disposition home or self-care (01) | DRG 854 ==
LOC: 2 NORTH 20:28
PROVIDERS: ADMITTING PHYSICIAN Hospitalist; ATTENDING PHYSICIAN Internal Medicine; CONSULT PHYSICIAN Surgery; EMERGENCY PHYSICIAN Emergency Medicine; FAMILY PHYSICIAN Family Medicine
PROC: 0T778DZ Dilation of Left Ureter with Intraluminal Device, Via Natural or Artificial Opening Endoscopic (ICD-10-PCS; 2023-08-29)
DX: A41.89 Other specified sepsis (principal); B00.89 Other herpesviral infection; N17.8 Other acute kidney failure; N13.6 Pyonephrosis; I10 Essential (primary) hypertension; E03.9 Hypothyroidism, unspecified; B96.1 Klebsiella pneumoniae [K. pneumoniae] as the cause of diseases classified elsewhere; F41.9 Anxiety disorder, unspecified; F32.A Depression, unspecified; G43.909 Migraine, unspecified, not intractable, without status migrainosus; K58.1 Irritable bowel syndrome with constipation; K22.70 Barrett's esophagus without dysplasia; K21.9 Gastro-esophageal reflux disease without esophagitis; E87.6 Hypokalemia; Z88.1 Allergy status to other antibiotic agents; Z88.8 Allergy status to other drugs, medicaments and biological substances; Z79.890 Hormone replacement therapy; Z79.899 Other long term (current) drug therapy; Z87.440 Personal history of urinary (tract) infections; Z87.442 Personal history of urinary calculi
CPT/HCPCS: 74018; 74176; 76000; 80053; 81003; 81015; 83605; 83690; 85025; 85027; 87040; 87077; 87086; 87186; 96361; 96374; 99285; C2617

== ENCOUNTER 2023-09-24 18:02 | Inpatient (IN) | payer OTHER, SELFPAY ==
[2023-09-24] VITALS (14 sets, daily range): BP systolic 100–131; BP diastolic 55–86; BMI 21.9
[2023-09-24] MEDS: DETROL LA 4 MG PO (14:54)
[2023-09-24] MEDS: Pyridium 200 MG PO (14:54)
[2023-09-24] MEDS: ROXICODONE 5 MG PO (15:40)
--- NOTE | 2023-09-24 16:07 | PTCARENOTE ---
Pt's reports pt feels 'off'. Vital signed checked, pt shivering, given warm blanket. Asked if pt would like to rest for a little bit, and she said she did. lights dimmed, call darnell in reach.
--- NOTE | 2023-09-24 16:56 | W.PN.ADMIT ---
Progress Note - Admit
Progress Note - Admit
63F w/ prior h/o obstructing RIGHT ureteral stone and Klebsiella urosepsis/bacteremia (02/2023) s/p emergent stent placement.
Right-sided ureteral/kidney stones treated w/ outpatient surgery in 02/2023 (2nd procedure).
08/28: ER visit w/ obstructing LEFT ureteral stone and urosepsis.
08/28: s/p emergent LEFT ureteral stent placement.
Discharged on PO Cefdinir x14 days.
09/2023: preop UCx negative for UTI (mixed urogenital carlos).
09/23: s/p LEFT ureteroscopy/laser lithotripsy/stone extraction/stent exchange - uncomplicated.
Doing well in PACU.
Just prior to discharge from [facility], RN noted temp 99.9F, chills, HR 123, BP 105/61, RR 20.
Pt seen and examined by me in [facility] - given h/o Klebsiella urosepsis in past and hemodynamic parameters, concern for post-op urosepsis.
Plan
- appreciate Hospitalist admission
- UCx + BCx x2 (ordered), CBC/BMP
- IV Zosyn 3.375 gm q6hr started
D/w patient and ([facility]).
D/w Dr. Morrow.
--- NOTE | 2023-09-24 17:05 | HPS.HSE ---
Addendum entered and electronically signed by Malcolm Aiken MD 09/24/23 18:26:
Seen and examined by me independently in collaboration with the nurse practitioner Dave.
Past medical history/social history/medication/allergies reviewed.
Lab data and imaging data reviewed.
Patient had a electives left ureteroscopy/laser lithotripsy/stone extraction/stent exchange and postprocedure developed low-grade fever, chills, tachycardia and abdominal pain. She also was feeling nauseous and dizzy. Her abdominal pain is mostly
in the bilateral groin. With a concern of preoperative infection patient is admitted to the hospital. She had prior Klebsiella urosepsis.
She just had her dinner and she is feeling little queasy in her belly. No vomiting.
No shortness of breath or chest pain.
She is tachycardic, BP stable and chest is clear. No murmur. Abdomen nondistended bowel sounds present tender in the left costo vertebral area in the left lower quadrant.
Clinical concern yong procedural bacteremia and UTI.
Adx to hospital and start on IV Zosyn and follow Cx data
Original Note:
Family Physician
-
Family Physician: NO INTERVIEW UNKNOWN
Chief Complaint
-
fever, chills
History of Present Illness
63 year old with PMH kidney stones s/p EFT ureteroscopy/laser lithotripsy/stone extraction/stent exchange noted to have emp 99.9F, chills, HR 123, BP 105/61, RR 20. at present patient complaining of dizzy, nauseaous, abdominal distention, groin
pain. denied PRETTY. denied chest pain, sob. denied hematuria.
given h/o Klebsiella urosepsis in past, patient initiated on Zosyn. admitting for further management.
Medical History
Past Medical History
Past Medical History: Reports Other
Additional Past Medical History:
Migraines
Hypothyroidism
Depression / Anxiety
GERD / Neville's
H/O Genital Herpes
Chronic Constipation
Nephrolithiasis
Past Surgical History: Reports Other
Additional Past Surgical History:
Left knee surgery
Right Ureteroscopy / Stent
Social History
Tobacco: Non-smoker
Alcohol: None
Drug: None
Personal:
Living: With Family
Family History
Family History: Not pertinent
Allergies / Home Medications
Allergies reflects when Allergies were last updated in [facility].
Home Medications with original date entered in [facility]
Allergy/Medication List:
Allergies
Allergy/AdvReac Type Severity Reaction Status Date / Time
azithromycin [From Zithromax] Allergy Hives Verified 09/24/23 12:47
metoclopramide HCl Allergy anxiety Verified 09/24/23 12:47
[From Reglan] attack
Home Medications
diazepam 5 mg tablet 5 mg PO HS ANXIETY/SLEEP 04/26/15
levothyroxine 88 mcg tablet 88 mcg PO DAILY HYPOTHYROIDISM 04/26/15
acyclovir 400 mg tablet 400 mg PO BID HERPES PROPHYLAXIS 02/15/23
cetirizine 10 mg tablet (Zyrtec) 10 mg PO DAILY allergies 02/15/23
clonazepam 0.5 mg tablet 0.25 mg PO HS PRN sleep/anxiety 02/15/23
omeprazole 40 mg capsule,delayed release 40 mg PO DAILY Gastrointestinal Issue 02/15/23
topiramate 200 mg tablet 200 mg PO BID MIGRAINES 02/15/23
venlafaxine 150 mg capsule,extended release 24 hr 150 mg PO BID DEPRESSION/ANXIETY 02/15/23
acetaminophen 325 mg tablet 650 mg (2 x 325 mg) PO Q4HPRN PRN mild pain #0 tabs 02/18/23
ferrous sulfate 325 mg (65 mg iron) tablet (FeroSul) 325 mg PO DAILY@1300 anemia 09/23/23
vibegron 75 mg tablet (Gemtesa) 75 mg PO DAILY 09/23/23
Review of Systems
-
Constitutional: Reports No Symptoms
EENT: Reports No Symptoms
Respiratory: Reports No Symptoms
Cardiac: Reports No Symptoms
Abdomen/GI: Reports Nausea
: Reports No Symptoms
Musculoskeletal: Reports No Symptoms
Skin: Reports No Symptoms
Neurological: Reports No Symptoms
Endocrine: Reports No Symptoms
Hematologic/Lymphatic: Reports No Symptoms
Psych: Reports No Symptoms
Physical Exam
Vital Signs
Vital Signs
Temp Pulse Resp BP Pulse Ox
99.9 F 123 20 105/61 99
09/24/23 16:30 09/24/23 16:30 09/24/23 16:30 09/24/23 16:30 09/24/23 16:30
Physical Exam
General: Well Developed, Well Nourished and No Apparent Distress
HEENT: NormoCephalic, Moist mucous membranes and Atraumatic
Respiratory: Clear
Cardiac: S1/S2 and Regular Rhythm; No Murmur or Rub
GI: Soft, Non Tender, Non Distended and Normal Bowel Sounds; No Organomegaly
Rectal: Deferred by Provider
Musculoskeletal: No Clubbing, No Cyanosis and No Edema
Skin: No Rash
Neuro: AO x 3 and Nonfocal/grossly intact
Psych: Calm
Data Reviewed
-
Lab Data: Labs Reviewed by me
Impression/Plan
-
# Fever/chills, tachycardia status post left ureteroscopy/laser/stent exchange
# Sepsis
-History of Klebsiella UTI
-Preop urine cultures negative
-IV Zosyn continued
-Blood cultures ordered
-Urology following patient
-Tylenol as needed for fever and pain
#Migraine Headaches
- Continue prophylactic regimen with Topamax.
#Anxiety / Depression
- Continue Effexor.
- clonazepam and diazepam continued
#iron def anemia
-ferrous sulfate continued
#overactive bladder
-Gemtesa continued
#GERD / Neville's Esophagus
- Stable. Continue daily PPI.
#Hypothyroidism
- Stable. Continue T4 supplementation.
3History of HSV
- Continue acyclovir prophylaxis.
#DVT Prophylaxis: SCDs
#Code Status: Full
[2023-09-24 17:38] LABS: % Basophils 0.3 % (0-2); % Eosinophils 0.8 % (0-6); % Immature Granulocytes 0.3 % (0-0.5); % Lymphocytes 3.6 % (20.5-51.1); % Monocytes 0.3 % (1.7-9.3); % Neutrophils 94.7 % (42.2-75.2); Absolute Lymphocytes 0.1 10^3/uL (1.2-3.4); Absolute Neutrophils 3.7 10^3/uL (1.4-6.5); Hematocrit 36.5 % (37.0-47.0); Hemoglobin 12.3 g/dL (12.0-16.0); Mean Corp Hgb Conc. 33.7 g/dL (33.0-37.0); Mean Corpuscular Hgb 31.2 pg (27.0-31.0); Mean Corpuscular Volume 92.6 fL (81.0-99.0); Mean Platelet Volume 11.3 fL (7.4-10.4); Nucleated Red Blood Cells % 0 %; Platelet Count 186 10^3/uL (130-400); Red Blood Cell Count 3.94 10^6/uL (4.20-5.40); Red Cell Dist. Width 13.5 % (11.5-14.5); White Blood Cell Count 3.9 10^3/uL (4.8-10.8)
[2023-09-24 18:02] LABS: Blood Urea Nitrogen 13 mg/dl (7-17); Carbon Dioxide 22 mmol/L (22-30); Chloride 108 mmol/L (98-107); Estimated Creatinine Clearance 50 ml/min; Glucose 80 mg/dl (70-99); Potassium 3.9 mmol/L (3.5-5.1); Sodium 138 mmol/L (135-145); eGFR 57.17
[2023-09-24] MEDS: ZOSYN 50 IV ×2 (18:10→23:03)
--- NOTE | 2023-09-24 18:44 | TRANSFER ---
Report called to Jelena on 2S. Pt transferred with her and her belongings. Pt had dinner here, tolerated well.
--- NOTE | 2023-09-24 18:45 | PTCARENOTE ---
Pt received from the [facility] via stretcher. Transport was w/o incident. Pt is AAOx3, VSS, Pt instructed on plan of care. Pt verbalized understanding of instructions, call darnell is within reach.
--- NOTE | 2023-09-24 20:00 | W.PN.URO.CBU ---
Addendum entered and electronically signed by Gerald Beaver MD 09/28/23 08:22:
CDI query:
Urosepsis unexpected w/ preop UCx demonstrating no significant growth (mixed urogenital carlos - skin contaminants).
Given negative preop UCx after completion of 14 day course of Cefdinir per ID, urosepsis unexpected and not complication of surgery.
Original Note:
Today's Communication / Plan
-
Admitted to Hospital Medicine
Continue IV Zosyn (based on UCx sensitivities 08/29/23)
CBC/BMP + UCx/BCx x2 ordered
IVF resuscitation and hemodynamic monitoring
Tylenol/NSAIDs prn
D/w patient and at bedside ([facility]).
D/w RN.
D/w Dr. Morrow.
Assessment / Plan
-
Urosepsis
s/p left URS/LL/stone extraction/stent exchange 09/23 (uncomplicated)
H/o Klebsiella pneumoniae urosepsis + obstructive uropathy (02/2023, 08/2023)
08/28: [facility] ER visit w/ obstructing LEFT ureteral stone and urosepsis.
08/28: s/p emergent LEFT ureteral stent placement.
Discharged on PO Cefdinir x14 days.
09/2023: preop UCx negative for UTI (mixed urogenital carlos).
09/23: s/p LEFT ureteroscopy/laser lithotripsy/stone extraction/stent exchange - uncomplicated.
Just prior to discharge from [facility], RN noted temp 99.9F, chills, HR 123, BP 105/61, RR 20.
Pt seen and examined by me in [facility] - given h/o Klebsiella urosepsis in past and hemodynamic parameters, concern for post-op urosepsis.
Diagnosis
-
Date of Service: September 25, 2023
-
Patient Diagnosis:
Urosepsis
s/p left URS/LL/stone extraction/stent exchange (uncomplicated)
H/o Klebsiella urosepsis with obstructive uropathy (02/2023, 08/2023)
Post Op Day:
09/23: s/p left URS/LL/stone extraction/stent exchange (uncomplicated)
Subjective
-
Rigors and chills improved since initial onset 30 min ago.
IV Zosyn initiated in SDS.
BCx sent.
Denies N/V.
Objective
-
Vital Signs
Temp Pulse Resp BP Pulse Ox
98.9 F 86 16 84/50 98
09/25/23 03:09 09/25/23 03:34 09/25/23 03:09 09/25/23 04:49 09/25/23 03:09
Intake and Output
09/23/23 09/24/23 09/25/23
06:59 06:59 06:59
Other:
Number of approximated MODERATE 1
amounts of urine
Physical Exam
-
General - well developed, well nourished, no acute distress
Chest - non-labored respirations
Abdomen - soft, non-tender, non-distended, no CVAT bilaterally
Skin - warm & dry with no rash
Neuro - AOx3, no motor deficits
Extremities - no clubbing, no cyanosis, no edema
Care Review
Data Reviewed
Discussed with: Hospitalist, Nursing and Family
Total Time Spent with Patient (in minutes): 55
[2023-09-24] MEDS: ZOVIRAX 400 MG PO (20:40)
[2023-09-24] MEDS: EFFEXOR XR 150 MG PO (20:41)
[2023-09-24] MEDS: TOPAMAX 200 MG PO (20:41)
[2023-09-24] MEDS: VALIUM 5 MG PO (23:03)
[2023-09-24] MEDS: TYLENOL 650 MG PO (23:20)
[2023-09-25] VITALS (71 sets, daily range): BP systolic 74–154; BP diastolic 31–100; BMI 22.6
[2023-09-25] MEDS: NSS 500 IV (01:20)
[2023-09-25 01:51] LABS: Hematocrit 31.5 % (37.0-47.0); Mean Corp Hgb Conc. 34.9 g/dL (33.0-37.0); Mean Corpuscular Hgb 31.5 pg (27.0-31.0); Mean Corpuscular Volume 90.3 fL (81.0-99.0); Mean Platelet Volume 11.3 fL (7.4-10.4); Platelet Count 157 10^3/uL (130-400); Red Blood Cell Count 3.49 10^6/uL (4.20-5.40); Red Cell Dist. Width 13.5 % (11.5-14.5); White Blood Cell Count 16.5 10^3/uL (4.8-10.8)
[2023-09-25] MEDS: ProAmatine 5 MG PO (03:34)
--- NOTE | 2023-09-25 03:40 | PTCARENOTE ---
0105 - TT to BRANCH ACCOUNT MANAGER made aware pt's manual BP was 75/45 - pt was asking for pain med at that time - earlier BP was 100/62. BRANCH ACCOUNT MANAGER ordered STAT lab and 500mL NSS bolus. Recheck BP at 0222 - 93/51, WBC resulted at 16.5 - BRANCH ACCOUNT MANAGER was TT and made aware. 0309 - Pt's
BP was 80/46; rechecked manually 80/45. BRANCH ACCOUNT MANAGER was made aware and ordered STAT Midodrine 5mg PO, and NSS 75mL/hr. Will reassess pt in one hour.
[2023-09-25] MEDS: NSS 1000 IV ×3 (03:46→21:10)
--- NOTE | 2023-09-25 05:07 | W.PN.UPDATE ---
Update Note
Progress Note Update
RN notified FAST FOOD SUPERVISOR BP 75/45 manual, c/o dizziness with mild fever 99.2. Ordered CBC stat, bolus NSS 500CC, BP -->93/51 MAP 65 HR 86, no active bleeding. Hgb stable.
one hour later BP 80/45 Fluids maintained, Midodrine 5mg PO given once.
one hour later BP remains 84/50, will transfer patient to IMU, IV Levophed continuos infusion in place.
Hypotensive likely due to sepsis.
--- NOTE | 2023-09-25 05:11 | PTCARENOTE ---
0449 - pt's BP 84/50 TT MORTGAGE CLOSER - MORTGAGE CLOSER ordered pt be transferred to higher level of care for IV pressors. Arborist made aware.
[2023-09-25] MEDS: ZOSYN 50 IV ×4 (05:31→23:55)
[2023-09-25] MEDS: SYNTHROID 88 MCG PO (05:31)
--- NOTE | 2023-09-25 06:32 | W.PN.URO.CBU ---
Today's Communication / Plan
-
abx and supportive care per medicine
Assessment / Plan
-
persistent urosepsis s/p endosurgery
Diagnosis
-
Date of Service: September 25, 2023
-
Patient Diagnosis:
Urosepsis s/p left URS/LL/stone extraction/stent exchange (uncomplicated)
H/o Klebsiella urosepsis w/ obstructive uropathy (02/2023, 08/2023)
Post Op Day: 1
Objective
-
Vital Signs
Temp Pulse Resp BP Pulse Ox
98.9 F 86 16 84/50 98
09/25/23 03:09 09/25/23 03:34 09/25/23 03:09 09/25/23 04:49 09/25/23 03:09
Intake and Output
09/23/23 09/24/23 09/25/23
06:59 06:59 06:59
Other:
Number of approximated MODERATE 1
amounts of urine
cx - pending
Physical Exam
-
General - well developed, well nourished, no acute distress
Chest - clear bilaterally
Abdomen - soft, non-tender, positive bowel sounds, no CVAT, no incisional pain or distention
Genitalia - normal
Rectal - normal
Skin - warm & dry with no rash
Neuro - AOx3, no motor deficits
Extremities - no clubbing, no cyanosis, no edema
Incision - clean, dry
Dressing - clean, dry, intact
--- NOTE | 2023-09-25 06:33 | TRANSFER ---
Report given to GARLAND Fox. Pt transferred via bed with all personal belongings at 0615.
[2023-09-25] MEDS: LEVOPHED 250 IV (06:40)
[2023-09-25 06:58] LABS: Hematocrit 32.3 % (37.0-47.0); Hemoglobin 10.9 g/dL (12.0-16.0); Mean Corp Hgb Conc. 33.7 g/dL (33.0-37.0); Mean Corpuscular Hgb 31.8 pg (27.0-31.0); Mean Corpuscular Volume 94.2 fL (81.0-99.0); Mean Platelet Volume 11.4 fL (7.4-10.4); Platelet Count 157 10^3/uL (130-400); Red Blood Cell Count 3.43 10^6/uL (4.20-5.40); Red Cell Dist. Width 13.6 % (11.5-14.5); White Blood Cell Count 16.3 10^3/uL (4.8-10.8)
[2023-09-25 07:07] LABS: Blood Urea Nitrogen 14 mg/dl (7-17); Calcium 8.5 mg/dl (8.4-10.2); Carbon Dioxide 21 mmol/L (22-30); Chloride 107 mmol/L (98-107); Estimated Creatinine Clearance 46 ml/min; Glucose 84 mg/dl (70-99); Potassium 3.6 mmol/L (3.5-5.1); Sodium 138 mmol/L (135-145)
--- NOTE | 2023-09-25 07:18 | PTCARENOTE ---
Received patient in room 3361- AAOx3 and able to make her needs known. Patient walked from her 2 south bed to ICU bed. Patient placed on ICU monitor. Plan of care reviewed with the patient. Teaching provided on need for Levophed. Sinus rhythm on the
monitor. Diminished breath sounds. Right hand IV flushed and patent. New 20 g forearm right IV placed. LEvophed initiated at 20 mcg/min (7.5 ml).
[2023-09-25] MEDS: ZOVIRAX 400 MG PO ×2 (07:43→19:53)
[2023-09-25] MEDS: EFFEXOR XR 150 MG PO ×2 (07:43→19:53)
[2023-09-25] MEDS: PROTONIX 40 MG PO (07:43)
[2023-09-25] MEDS: ZYRTEC 10 MG PO (07:43)
[2023-09-25] MEDS: DETROL LA 4 MG PO (07:44)
[2023-09-25] MEDS: ROXICODONE 5 MG PO ×2 (07:44→20:09)
--- NOTE | 2023-09-25 08:00 | PTCARENOTE ---
Addendum entered by Ne Vickers RN 09/25/23 10:07:
NSS at 100mL/hr per order
Original Note:
Received pt from casino shift manager. Assessment performed, see flowsheets. Pt AAOx4 and lying comfortably in bed. Reports some 7/10 pelvic pain and is 'feeling crummy'. Pt also reports chills and some dizziness. NSR on heart monitor. SaO2 95-97% on room
air. Levophed gtt infusing at 2mcg/7.5mL/hr through R forearm #20 PIV. NSS had been capped, but now restarted at 75mL/hr per order. R hand #20 PIV capped. Pt urinated in bedpan, though some spilled. Gown and linens changed. Assisted pt with CHG
wipes. Pt expressed appreciation. Pt is IMU level of care. Will continue to monitor.
[2023-09-25] MEDS: TOPAMAX 200 MG PO ×2 (09:00→19:53)
[2023-09-25] MEDS: MOTRIN 600 MG PO ×2 (09:04→16:17)
--- NOTE | 2023-09-25 09:53 | W.PN.HOSP.TC ---
Today's Communication/Plan
-
Check lactic acid
Continue with IV fluids and wean Levophed.
Continue with Zosyn.
Follow culture data.
Assessment / Plan
Assessment / Plan
# Fever/chills, tachycardia status post left ureteroscopy/laser/stent exchange
# Sepsis with septic shock
-On IV fluids and low-dose Levophed. Blood pressure has been stable. Check lactic acid and no further fluid challenges based on that. Try to wean vasopressors. Follow culture data and leukocytosis.
-History of Klebsiella UTI
-Preop urine cultures negative
-cw IV Zosyn
-Blood cultures pending.
#Migraine Headaches
- Continue prophylactic regimen with Topamax.
#Anxiety / Depression
- Continue Effexor.
- clonazepam and diazepam continued
#iron def anemia
-ferrous sulfate continued
#overactive bladder
-Gemtesa continued
#GERD / Neville's Esophagus
- Stable. Continue daily PPI.
#Hypothyroidism
- Stable. Continue T4 supplementation.
3History of HSV
- Continue acyclovir prophylaxis.
#DVT Prophylaxis: SCDs
#Code Status: Full
DW RN
Total time spent on today's encounter was 52 minutes which included time spent in counseling the patient regarding diagnosis and treatment plan as listed above, goals of care, and symptom management. Case was discussed with nursing staff,
specialists . All labs and imaging personally reviewed by me. Remainder the time spent in detailed review of previous records, lab data, imaging, and other medical provider documentation.
Anticipated Discharge: > 48 hours
Subjective/Interval History
-
Date of Service: September 25, 2023
Last night events noted. Patient was hypotensive requiring fluid boluses and then went on vasopressor. Got transferred to IMU.
This morning patient feels abdominal pain is better. It is still present in the groins more so in the left. Also has some left flank discomfort.
Improved nausea. Able to tolerate oral diet.
Denies any fever or chills. No shortness of breath or chest pain.
Objective Data
-
Labs:
Laboratory Results
09/25/23 09/25/23
01:46 06:45
WBC 16.5 H 16.3 H
Hgb 11.0 L 10.9 L
Hct 31.5 L 32.3 L
Plt Count 157 157
Sodium 138
Potassium 3.6
Chloride 107
Carbon Dioxide 21 L
BUN 14
Creatinine 1.2 H
Glucose 84
Calcium 8.5
Vital Signs:
Vital Signs
Temp Pulse Resp BP Pulse Ox
98.9 F 98 20 113/58 93
09/25/23 07:52 09/25/23 08:46 09/25/23 08:46 09/25/23 08:46 09/25/23 08:45
I&O
09/24/23 09/25/23 09/26/23
06:59 06:59 06:59
Intake Total 1450 / 1450 7.5 / 7.5
Balance 1450 / 1450 7.5 / 7.5
Review of Systems
-
Constitutional: Denies Fever
Respiratory: Denies Cough
Genitourinary: Denies Dysuria
Neuro: Denies Dizzy
Physical Exam
-
General: No Apparent Distress
HEENT: Moist Mucous Membranes
Respiratory: Clear to Auscultation
Cardiac: Regular Rhythm and S1/S2
GI: Soft, Nondistended and Normal Bowel Sounds
Genito-urinary: Costovertebral Angle Tend (in left flank -mild)
Neuro: AO x 3
Data Reviewed
-
Labs: Labs Reviewed by me
[2023-09-25 10:21] LABS: Lactic Acid 2.4 mmol/L (0.7-2.0)
[2023-09-25] MEDS: IMITREX 50 MG PO (11:27)
[2023-09-25] MEDS: FEOSOL 325 MG PO (16:08)
--- NOTE | 2023-09-25 20:28 | PTCARENOTE ---
Handoff report received from off going RN. Patient received in bed on Levophed 2 mcg/min (7.5ml/hr) and NS at 100 ml/hr. Patient is drowsy but arousable to verbali stimuli. Pt's AAOx3 and able to make her needs known. Complains of 7/10 pain to her
bilateral groin and a headache. Plan of care for the shift and pain management plan reviewed with the patient. NSR on the monitor. Diminished breath sounds to the bases. Spo3 ay 94% on RA. +BS. Patient assisted OOB to bedside commode. Pt voided
large amount of urine that's yellow in color. SCDs in place. The patient ate 100% of her dinner. Safety measures maintained. Call darnell and personal belongings are within reach.
[2023-09-25] MEDS: VALIUM 5 MG PO (22:01)
[2023-09-26] VITALS (53 sets, daily range): BP systolic 70–152; BP diastolic 40–85; BMI 23.2
--- NOTE | 2023-09-26 00:14 | PTCARENOTE ---
Patient reassessed. Levophed at 4 mcg/min. Pt's awake. Rings appropriately. No further changes since previous assessment.
[2023-09-26] MEDS: LEVOPHED 250 IV ×2 (03:09→16:33)
[2023-09-26] MEDS: MOTRIN 600 MG PO (03:50)
--- NOTE | 2023-09-26 04:50 | PTCARENOTE ---
Patient reassessed. Assisted oob to bedside commode. Patient cleansed and linens changed. Labs drawn and sent.
[2023-09-26 04:56] LABS: Hematocrit 35.7 % (37.0-47.0); Hemoglobin 11.9 g/dL (12.0-16.0); Mean Corp Hgb Conc. 33.3 g/dL (33.0-37.0); Mean Corpuscular Hgb 31.7 pg (27.0-31.0); Mean Corpuscular Volume 95.2 fL (81.0-99.0); Mean Platelet Volume 11.6 fL (7.4-10.4); Platelet Count 161 10^3/uL (130-400); Red Blood Cell Count 3.75 10^6/uL (4.20-5.40); Red Cell Dist. Width 13.8 % (11.5-14.5); White Blood Cell Count 13.2 10^3/uL (4.8-10.8)
[2023-09-26 05:20] LABS: Blood Urea Nitrogen 10 mg/dl (7-17); Calcium 8.6 mg/dl (8.4-10.2); Carbon Dioxide 21 mmol/L (22-30); Chloride 114 mmol/L (98-107); Estimated Creatinine Clearance 55 ml/min; Glucose 114 mg/dl (70-99); Potassium 3.9 mmol/L (3.5-5.1); Sodium 144 mmol/L (135-145); eGFR > 60.00
[2023-09-26] MEDS: ZOSYN 50 IV (05:25)
[2023-09-26] MEDS: SYNTHROID 88 MCG PO (05:25)
--- NOTE | 2023-09-26 06:02 | W.PN.URO.CBU ---
Today's Communication / Plan
-
sepsis care per critical care team
Assessment / Plan
-
Urosepsis
s/p left URS/LL/stone extraction/stent exchange 09/23 (uncomplicated)
H/o Klebsiella pneumoniae urosepsis + obstructive uropathy (02/2023, 08/2023)
Diagnosis
-
Date of Service: September 26, 2023
-
Patient Diagnosis:
Urosepsis
s/p left URS/LL/stone extraction/stent exchange (uncomplicated)
H/o Klebsiella urosepsis with obstructive uropathy (02/2023, 08/2023)
Post Op Day:
09/23: s/p left URS/LL/stone extraction/stent exchange (uncomplicated)
Objective
-
Vital Signs
Temp Pulse Resp BP Pulse Ox
97.9 F 81 22 113/70 95
09/26/23 03:42 09/26/23 04:15 09/26/23 04:15 09/26/23 03:46 09/26/23 04:15
Intake and Output
09/24/23 09/25/23 09/26/23
06:59 06:59 06:59
Intake Total 1450 / 1450 2897.6 / 2897.6
Output Total 2099
Balance 1450 / 1450 797.6 / 797.6
Intake:
Oral fluids 600 / 600 680 / 680
IV fluids (Total) 750 / 750 2167.6 / 2167.6
Levophed 217.6 / 217.6
Nss 1,000 ml @ 100 mls/hr IV . 750 / 750 1950 / 1950
Q10H BLANCHE Rx#:[id number]
IV piggybacks 100 / 100 50 / 50
Output:
Urine, Voided 2099
Other:
Number of approximated MODERATE 4
amounts of urine
Number of approximated LARGE 1
amounts of urine
Laboratory Results
09/26/23 04:39
09/26/23 04:39
Physical Exam
-
General - well developed, well nourished, no acute distress
Chest - clear bilaterally
Abdomen - soft, non-tender, positive bowel sounds, no CVAT, no incisional pain or distention
Genitalia - normal
Rectal - normal
Skin - warm & dry with no rash
Neuro - AOx3, no motor deficits
Extremities - no clubbing, no cyanosis, no edema
Incision - clean, dry
Dressing - clean, dry, intact
[2023-09-26] MEDS: TOPAMAX 200 MG PO ×2 (08:13→21:11)
[2023-09-26] MEDS: PROTONIX 40 MG PO (08:13)
[2023-09-26] MEDS: EFFEXOR XR 150 MG PO ×2 (08:13→21:10)
[2023-09-26] MEDS: ZYRTEC 10 MG PO (08:13)
[2023-09-26] MEDS: ZOVIRAX 400 MG PO ×2 (08:13→21:11)
[2023-09-26] MEDS: DETROL LA 4 MG PO (08:13)
--- NOTE | 2023-09-26 10:31 | CON.ID ---
Consultation
-
Date/Time Consultation Requested: September 26, 2023 0757
Date/Time Consultation Performed: September 26, 2023 1030
Requesting Provider: Dr. Malcolm Aiken
Performing Provider: Dr. Cate Robles
Reason for Consultation: Bacteremia
Chief Complaint / Past History
Chief Complaint
left flank pain
History of Present Illness
63-year-old female with history of nephrolithiasis complicated by Klebsiella right obstructive uropathy with bacteremia in February 2023 status post urological procedure. In August 2023, she was admitted with left obstructive uropathy status post
stent placement. Urine culture grew Klebsiella and she was discharged on cefdinir. Patient was doing well at home but developed recurrent left flank pain. On 09/24/23 she underwent LEFT ureteroscopy/laser lithotripsy/stone extraction/stent
exchange. She received preop cefazolin. However,postop she developed shaking chills, tachycardic, bilateral groin pain. Patient was therefore admitted to the hospital. She developed fever up to 101. Admission blood cultures are positive for
Klebsiella pneumonia. She is currently on Zosyn. Patient reports she developed left flank pain about half an hour ago. Urinating well. No gross hematuria.
Past History
Additional Past Medical History:
Hypothyroidism
HTN
Anxiety/depression
Migraines
Overactive bladder
Nephrolithiasis/obstructive uropathy's
Klebsiella UTI/bacteremia
Genital HSV
Left knee surgery
Additional Past Surgical History:
Appendectomy
Allergy History:
azithromycin [From Zithromax] Allergy (Verified 09/24/23 12:47)
Hives
metoclopramide HCl [From Reglan] Allergy (Verified 09/24/23 12:47)
anxiety attack
Medications Reviewed: Yes
Social History
Tobacco: Non-Smoker
Alcohol: None
Drug: None
Personal:
Living: With Family
Employment: Retired
Family History
Family History: Not Pertinent
Review of Systems
Review of Systems
General: Fever and Chills
HEENT: Negative Headache or Pharyngitis
Cardiovascular: Negative Chest Pain or Dyspnea
Respiratory: Negative Dyspnea or Cough
Gasteroenterology: Negative Nausea or Vomiting
Genital / Urological: Flank Pain
Endocrine: Weakness
Skin / Hair / Nails: Negative Rash
Neurological: Negative Headache or Dizziness
All systems: All other systems were reviewed and were negative
Vital Signs
Temp Pulse Resp BP Pulse Ox
98.2 F 81 22 113/70 95
09/26/23 09:09 09/26/23 04:15 09/26/23 04:15 09/26/23 03:46 09/26/23 04:15
Physical Exam
Physical Exam
Constitutional: No Acute Distress
Eyes: No Conjunctival Hemorrhage and Sclera Anicteric
Pulmonary: Clear
Gastrointestinal: Soft, Non Tender, Non Distended and Normal Bowel Sounds
Genito-Urinary: CVA Tenderness (left)
Extremities: Negative Edema
Neurological: AO x 3
Lab / Diagnostic Study Results
09/26/23 04:39
09/26/23 04:39
Abs Immat Gran (auto) 0.0 10^3/uL (0-0.05) 09/24/23 17:31
Absolute Neuts (auto) 3.7 10^3/uL (1.4-6.5) 09/24/23 17:31
Absolute Lymphs (auto) 0.1 10^3/uL (1.2-3.4) L 09/24/23 17:31
Absolute Monos (auto) 0.0 10^3/uL (0.1-0.6) L 09/24/23 17:31
Absolute Basos (auto) 0.0 10^3/uL (0-0.2) 09/24/23 17:31
Immature Gran % 0.3 % (0-0.5) 09/24/23 17:31
Neutrophils % 94.7 % (42.2-75.2) H 09/24/23 17:31
Lymphocytes % 3.6 % (20.5-51.1) L 09/24/23 17:31
Monocytes % 0.3 % (1.7-9.3) L 09/24/23 17:31
Eosinophils % 0.8 % (0-6) 09/24/23 17:31
Basophils % 0.3 % (0-2) 09/24/23 17:31
Lactic Acid 2.4 mmol/L (0.7-2.0) H 09/25/23 10:01
Microbiology Results
Micro:
09/24/23 22:27 Urine Culture - Final
Urine NO GROWTH
09/24/23 19:42 Blood Culture - Preliminary
Blood/Venous Positive culture in progress
Gram Stain - Preliminary
09/24/23 17:31 Blood Culture - Preliminary
Blood/Venous Klebsiella pneumoniae
Gram Stain - Preliminary
Assessment / Plan
# Left obstructive uropathy s/p elective ureteroscopy/laser lithotripsy/stone extraction/stent exchange
# Klebsiella bacteremia from urological source
# Septic shock
# hx Klebsiella complicated UTI/bacteremia in the past
- Follow repeat blood cx's for clearance
- Narrow Zosyn to ceftriaxone.
- Trend wbc/temps/vitals.
[2023-09-26] MEDS: ROXICODONE 5 MG PO (10:48)
--- NOTE | 2023-09-26 10:59 | W.PN.HOSP.TC ---
Today's Communication/Plan
-
Wean Levophed
Consult ID
[id number]
Repeat blood cx
Assessment / Plan
Assessment / Plan
# Fever/chills, tachycardia status post left ureteroscopy/laser/stent exchange
# Sepsis with septic shock
#Left lung pneumonia bacteremia
-Improving hemodynamics. On low-dose of Levophed. Continue to wean.
-Improved leukocytosis.
-History of Klebsiella UTI
-Preop urine cultures negative
-cw IV Zosyn. Consult ID
#Migraine Headaches
- Continue prophylactic regimen with Topamax. We did dose of Imitrex yesterday. Resolved headache.
#Anxiety / Depression
- Continue Effexor.
- clonazepam and diazepam continued
#iron def anemia
-ferrous sulfate continued
#overactive bladder
-Gemtesa continued
#GERD / Neville's Esophagus
- Stable. Continue daily PPI.
#Hypothyroidism
- Stable. Continue T4 supplementation.
3History of HSV
- Continue acyclovir prophylaxis.
#DVT Prophylaxis: SCDs
#Code Status: Full
DW RN
Total time spent on today's encounter was 52 minutes which included time spent in counseling the patient regarding diagnosis and treatment plan as listed above, goals of care, and symptom management. Case was discussed with nursing staff,
specialists, . All labs and imaging personally reviewed by me. Remainder the time spent in detailed review of previous records, lab data, imaging, and other medical provider documentation.
Anticipated Discharge: 24 - 48 hours
Subjective/Interval History
-
Date of Service: September 26, 2023
Patient is feeling better. Abdominal and left flank pain is improving. No dysuria. No fever or chills. No nausea vomiting.
Objective Data
-
Labs:
Laboratory Results
09/26/23
04:39
WBC 13.2 H
Hgb 11.9 L
Hct 35.7 L
Plt Count 161
Sodium 144
Potassium 3.9
Chloride 114 H
Carbon Dioxide 21 L
BUN 10
Creatinine 1.0
Glucose 114 H
Calcium 8.6
Vital Signs:
Vital Signs
Temp Pulse Resp BP Pulse Ox
98.2 F 81 22 113/70 95
09/26/23 09:09 09/26/23 04:15 09/26/23 04:15 09/26/23 03:46 09/26/23 04:15
I&O
09/25/23 09/26/23 09/27/23
06:59 06:59 06:59
Intake Total 1450 / 1450 3112.6 / 3112.6
Output Total 2550 / 2550
Balance 1450 / 1450 562.6 / 562.6
Review of Systems
-
Respiratory: Denies Trouble Breathing
Cardiac: Denies Chest Pain
Neuro: Denies Dizzy
Physical Exam
-
General: No Apparent Distress
HEENT: Moist Mucous Membranes
Respiratory: Non Labored Respirations; Negative Accessory Resp Muscle Use
Cardiac: Regular Rhythm and S1/S2; Negative Tachycardic
GI: Soft
Neuro: AO x 3
Psych: Negative Confused
Data Reviewed
-
Labs: Labs Reviewed by me
[2023-09-26] MEDS: NSS 500 IV ×2 (11:53→14:06)
[2023-09-26] MEDS: NSS IV (11:53)
[2023-09-26] MEDS: ROCEPHIN 2000 MG IV (11:56)
[2023-09-26] MEDS: STERILE WATER FOR INJECTION 20 ML IV (11:56)
[2023-09-26] MEDS: FEOSOL 325 MG PO (11:57)
--- NOTE | 2023-09-26 13:12 | PTCARENOTE ---
levo off, MAP 62. Dr. Aiken made aware, 500 ml bolus administered. BP 87/62 MAP 70. cont to monitor
[2023-09-26] MEDS: ProAmatine 5 MG PO ×2 (14:06→17:34)
--- NOTE | 2023-09-26 16:19 | PTCARENOTE ---
after second IV 500 ml bolus MAP 57. restarted levophed gtt @ 2 mcg. for goal of MAP greater 65
[2023-09-26] MEDS: NSS 1000 IV (16:33)
[2023-09-26 17:25] LABS: Cortisol, Random 12.9 ug/dl
--- NOTE | 2023-09-26 20:00 | PTCARENOTE ---
recd pt at 1900. aaox3. SR on monitor. on 1mcg of levo through the rt midline. scds. dimin BS. pt up w/ 1x assist to bathroom. regular diet. call darnell in reach, safe environment maintained.
--- NOTE | 2023-09-26 20:00 | PTCARENOTE ---
recd pt at 1900. aaox3. SR on monitor. on 1mcg of levo through the rt midline. afebrile. scds on. diminished BS. RA POX 94%. pt gets up to commode w/ /x assist. pt incontinent of urine. poor appetite. sacral foam placed for protection. rt dual
luman picc flushed and patent. call darnell in reach, family at bedside.
[2023-09-26] MEDS: VALIUM 5 MG PO (21:18)
[2023-09-27] VITALS (33 sets, daily range): BP systolic 91–151; BP diastolic 52–110; BMI 23.2
[2023-09-27] MEDS: NSS 1000 IV ×3 (03:14→22:07)
[2023-09-27 04:29] LABS: Hematocrit 36.7 % (37.0-47.0); Hemoglobin 12.4 g/dL (12.0-16.0); Mean Corp Hgb Conc. 33.8 g/dL (33.0-37.0); Mean Corpuscular Hgb 32.2 pg (27.0-31.0); Mean Corpuscular Volume 95.3 fL (81.0-99.0); Mean Platelet Volume 11.7 fL (7.4-10.4); Platelet Count 196 10^3/uL (130-400); Red Blood Cell Count 3.85 10^6/uL (4.20-5.40); Red Cell Dist. Width 13.9 % (11.5-14.5)
[2023-09-27 04:53] LABS: Blood Urea Nitrogen 5 mg/dl (7-17); Calcium 8.9 mg/dl (8.4-10.2); Carbon Dioxide 21 mmol/L (22-30); Chloride 115 mmol/L (98-107); Estimated Creatinine Clearance 69 ml/min; Glucose 89 mg/dl (70-99); Potassium 3.7 mmol/L (3.5-5.1); Sodium 142 mmol/L (135-145); eGFR > 60.00
[2023-09-27] MEDS: IMITREX 50 MG PO (04:58)
[2023-09-27] MEDS: SYNTHROID 88 MCG PO (05:24)
[2023-09-27] MEDS: DETROL LA 4 MG PO (09:20)
[2023-09-27] MEDS: ZOVIRAX 400 MG PO ×2 (09:20→20:36)
[2023-09-27] MEDS: ProAmatine 5 MG PO ×3 (09:20→18:36)
[2023-09-27] MEDS: TOPAMAX 200 MG PO ×2 (09:21→20:36)
[2023-09-27] MEDS: EFFEXOR XR 150 MG PO ×2 (09:21→20:36)
[2023-09-27] MEDS: PROTONIX 40 MG PO (09:21)
[2023-09-27] MEDS: ZYRTEC 10 MG PO (09:21)
--- NOTE | 2023-09-27 11:53 | W.PN.ID1 ---
Date of Service
Date of Service: September 27, 2023
Today's Communication
- continue ceftriaxone.
-at time of discharge, can dc on cipro 500mg po bid to complete 14 day total course.
Assessment / Plan
# Left obstructive uropathy s/p elective ureteroscopy/laser lithotripsy/stone extraction/stent exchange
# Klebsiella bacteremia from urological source
# s/p Septic shock
# hx Klebsiella complicated UTI/bacteremia in the past
- repeat blood cx's neg to date
- continue ceftriaxone.
-at time of discharge, can dc on cipro 500mg po bid to complete 14 day total course.
Chief Complaint
-: UTI and Bacteremia
Vital Signs / Physical Exam
Vital Signs
Vital Signs
Temp Pulse Resp BP Pulse Ox
98.4 F 116 22 100/59 95
09/27/23 09:32 09/27/23 09:20 09/27/23 05:01 09/27/23 09:20 09/27/23 09:39
Physical Exam
Constitutional: No Acute Distress
Pulmonary: Clear
Gastrointestinal: Soft, Non Tender and Non Distended
Genito-Urinary: Negative CVA Tenderness
Objective Data
Lab Data
Lab Results
09/27/23 04:17
09/27/23 04:17
Estimated Creat Clear 69 ml/min 09/27/23 04:17
Lactic Acid 1.0 mmol/L (0.7-2.0) 09/26/23 19:16
Most recent labs reviewed.
Micro Results:
09/26/23 10:52 Blood Culture - Preliminary
Blood/Venous No Growth in 24 hours- Final report to follow
09/26/23 10:52 Blood Culture - Preliminary
Blood/Venous No Growth in 24 hours- Final report to follow
09/24/23 19:42 Blood Culture - Preliminary
Blood/Venous Klebsiella pneumoniae
Gram Stain - Preliminary
09/24/23 17:31 Blood Culture - Preliminary
Blood/Venous Klebsiella pneumoniae
Gram Stain - Preliminary
09/24/23 22:27 Urine Culture - Final
Urine NO GROWTH
[2023-09-27] MEDS: STERILE WATER FOR INJECTION 20 ML IV (12:03)
[2023-09-27] MEDS: ROCEPHIN 2000 MG IV (12:03)
--- NOTE | 2023-09-27 12:08 | PTCARENOTE ---
Pt received from nightskyft RN. Ox3 and appropriate. Complains of a minor dull PRETTY, a remnant of her migraine from overnight. NSR on tele, rate in the 80's. BP adequate while receiving midodrine 5mg TID. 96% on RA, breath sounds diminished. Pt
walking with a one person assist to the bathroom. No difficulty urinating. Good appetite. Currently has NSS infusing through a R midline. Call darnell within reach. Pt makes needs known.
[2023-09-27] MEDS: FEOSOL 325 MG PO (12:14)
--- NOTE | 2023-09-27 14:41 | CM ---
CM following re: discharge planning.
Reviewed pt's chart, met with pt.
Pt is a 63 year old female, admitted with primary dx of Fever/chills, tachycardia status post left ureteroscopy/laser/stent exchange.
Pt reports she lives with in a 2SH, 1 steps to enter, master bedroom and master bathroom on the first floor. Pt reports she has supportive son. Pt described herself as independent in all areas [employer], has a wheelchair and uses it for a long
distance. No VN or SNF history.
PCP: Pt stated she does not have PCP.
Pharmacy: [facility].
D/C plan: home with anticipated no needs.
CM will follow with discharge plan updates as hospitalization progresses
--- NOTE | 2023-09-27 15:01 | W.PN.HOSP.TC ---
Today's Communication/Plan
-
continue IV Abx
monitor BP while on IVF
transfer to [place] status
Assessment / Plan
Assessment / Plan
Assessment:
Septic shock from Klebsiella UTI with Klebsiella Bacteremia
- noted s/p left URS/LL/stone extraction/stent exchange 09/23 (uncomplicated)
- ID and Urology following
- continue Rocephin per ID; follow repeat cultures
- s/p pressors. weaned to off. Continue IVF per sepsis protocol
Migraine Headaches
- Continue prophylactic regimen with Topamax. s/p Imitrex with resolved headache
Anxiety/Depression
- Continue Effexor.
- clonazepam and diazepam continued
iron def anemia
- ferrous sulfate continued
overactive bladder
- Gemtesa continued
GERD / Neville's Esophagus
- Stable. continue daily PPI.
Hypothyroidism
- Stable. continue T4 supplementation.
History of HSV
- Continue acyclovir prophylaxis.
DVT Prophylaxis: SCDs
Code Status: Full
Anticipated Discharge: 24 - 48 hours
Subjective/Interval History
-
Date of Service: September 27, 2023
denies any new complaints
Objective Data
-
Labs:
Laboratory Results
09/27/23
04:17
WBC 11.0 H
Hgb 12.4
Hct 36.7 L
Plt Count 196 D
Sodium 142
Potassium 3.7
Chloride 115 H
Carbon Dioxide 21 L
BUN 5 L
Creatinine 0.8
Glucose 89
Calcium 8.9
Vital Signs:
Vital Signs
Temp Pulse Resp BP Pulse Ox
98.4 F 85 17 91/52 95
09/27/23 09:32 09/27/23 12:14 09/27/23 12:02 09/27/23 12:14 09/27/23 09:39
I&O
09/26/23 09/27/23 09/28/23
06:59 06:59 06:59
Intake Total 3112.6 / 3112.6 2534.2 / 2634.2 600 / 600
Output Total 2550 / 2550 1550 / 1550
Balance 562.6 / 562.6 984.2 / 1084.2 600 / 600
Physical Exam
-
General: No Apparent Distress
HEENT: Normocephalic and Atraumatic
Respiratory: Negative Wheezes
Cardiac: Regular Rhythm and S1/S2
GI: Soft
Neuro: AO x 3
Psych: Calm
Data Reviewed
-
Total Time Spent with Patient (in minutes): 44
Labs: Labs Reviewed by me
--- NOTE | 2023-09-27 20:58 | PTCARENOTE ---
Patient received in bed. AAOx3 and able to make her needs known. Plan of care for the shift reviewed with the patient. VSS. Clear breath sounds. +BS. Pt ambulated to the bathroom. Gait is steady. Pt declines SCDs usage at this time, but is agreeable
to pillow use under the legs. Scheduled medications administered. Safet measures in use. Bed in the lowest position. Call darnell and personal belongings are within reach.
[2023-09-27] MEDS: VALIUM 5 MG PO (22:07)
--- NOTE | 2023-09-28 00:26 | PTCARENOTE ---
Patient reassessed. Pt's resting with eyes closed. RR 10. respiration unlabored with even chest rise.
--- NOTE | 2023-09-28 01:21 | PTCARENOTE ---
[id number]: Report called to GARLAND Grijalva. Patient transported to room 2126 via wheelchair. Pt ambulated from the wheelchair to her bed. Remained stable.
[2023-09-28 01:22] VITALS: BP 138/83
[2023-09-28 01:27] VITALS: BMI 23.3
--- NOTE | 2023-09-28 01:45 | PTCARENOTE ---
report received. pt transferred from icu to 2125. aaox3 w/ flat affect. vss. nss @ 100cc/hr. call darnell in reach. pt updated on plan of care. will monitor.
[2023-09-28 05:14] LABS: Hematocrit 35.8 % (37.0-47.0); Hemoglobin 12.5 g/dL (12.0-16.0); Mean Corp Hgb Conc. 34.9 g/dL (33.0-37.0); Mean Corpuscular Hgb 32.5 pg (27.0-31.0); Mean Platelet Volume 11.2 fL (7.4-10.4); Platelet Count 251 10^3/uL (130-400); Red Blood Cell Count 3.85 10^6/uL (4.20-5.40); Red Cell Dist. Width 13.9 % (11.5-14.5); White Blood Cell Count 10.3 10^3/uL (4.8-10.8)
[2023-09-28 05:42] LABS: Blood Urea Nitrogen 4 mg/dl (7-17); Calcium 8.8 mg/dl (8.4-10.2); Carbon Dioxide 18 mmol/L (22-30); Chloride 118 mmol/L (98-107); Estimated Creatinine Clearance 69 ml/min; Glucose 86 mg/dl (70-99); Potassium 3.8 mmol/L (3.5-5.1); Sodium 142 mmol/L (135-145); eGFR > 60.00
[2023-09-28] MEDS: SYNTHROID 88 MCG PO (06:22)
[2023-09-28] MEDS: NSS 1000 IV (06:23)
[2023-09-28 07:30] VITALS: BP 108/72
--- NOTE | 2023-09-28 07:41 | PN.CDI ---
CDI
- -
CDI:
Physician Documentation Request
Admit Date: 09/24/23 18:02
Dear Doctor Concetta,
Please review the following and provide your response in the progress notes.
Clinical Indicators:
Laboratory Tests
09/24/23 09/25/23 09/26/23
17:31 06:45 04:39
Creatinine 1.1 H 1.2 H 1.0
eGFR 57.17 51.50 > 60.00
09/27/23 09/28/23
04:17 04:59
Creatinine 0.8 0.8
eGFR > 60.00 > 60.00
Based on the above information and the clinical indicators in the record, please clarify in the Progress Notes which of the following most accurately represents the patient's renal status:
Acute kidney injury with no underlying CKD
Abnormal lab value, clinically insignificant
Acute kidney injury on baseline CKD, (specify stage of CKD)
Other(please specify)
Criteria for CHINEDU*
1 Increase in serum creatinine by > or = to 0.3 mg/dL (> or = to 26.5 micromol/L) within 48 hours, OR
2 Increase in serum creatinine to > or = to 1.5 times baseline, which is known or presumed to have occurred within 7 days, OR
3 Urine volume < 0.5 nL/kg/hour for six hours
Stages of Chronic Kidney Disease*
Level Description GFR
G1 Normal or High >90
G2 Mildly decreased 60-89
G3a Mildly to moderately decreased 45-59
G3b Moderately to severely decreased 30-44
G4 Severely decreased 15-29
G5 Kidney failure <15
Use of terms such as suspected, likely, concern for, or probable (associated with a specific diagnosis that is being evaluated, monitored, or treated as if it exists) are acceptable and can be coded in the inpatient setting, when documented at the
time of discharge.
Thank you,
Paige Real RN BSN CCDS
CDI Specialist
Please contact via tiger text
Please use your independent medical judgment in providing your response.
*Source: Kidney Disease: Improving Global Outcomes (KDIGO) 2012
--- NOTE | 2023-09-28 08:01 | PN.CDI ---
CDI
- -
CDI:
Physician Documentation Request
Admit Date: 09/24/23 18:02
Dear Doctor Sd,
Please review the following and provide your response in the progress notes.
Clinical Indicators:
PN, 09/23
#Just prior to discharge from [facility],
#...RN noted temp 99.9F, chills, HR 123, BP 105/61, RR 20.
#...concern for post-op urosepsis.
Hospitalist, PN, 09/24
# Fever/chills, tachycardia status post left ureteroscopy/laser/stent exchange
# Sepsis with septic shock
#...-On IV fluids and low-dose Levophed.
ID, consult, 09/25
# Left obstructive uropathy s/p elective ureteroscopy/laser lithotripsy/stone extraction/stent exchange
# Klebsiella bacteremia from urological source
# Septic shock
Laboratory Tests
09/24/23 09/25/23 09/25/23
17:31 01:46 06:45
WBC 3.9 L 16.5 H 16.3 H
09/26/23 09/27/23 09/28/23
04:39 04:17 05:00
WBC 13.2 H 11.0 H 10.3
Laboratory Tests
09/25/23 09/26/23
10:01 19:16
Lactic Acid 2.4 H 1.0
Please clarify the following:
Sepsis is a complication of the surgery
Sepsis is unexpected but is NOT a complication of the surgery
Other(please specify)
Use of terms such as suspected, likely, concern for, or probable (associated with a specific diagnosis that is being evaluated, monitored, or treated as if it exists) are acceptable and can be coded in the inpatient setting, when documented at the
time of discharge.
Thank you,
Paige Real
CDI Specialist
Please use your independent medical judgment in providing your response.
--- NOTE | 2023-09-28 08:04 | W.PN.HOSP.TC ---
Today's Communication/Plan
-
dc to home
Assessment / Plan
Assessment / Plan
Assessment:
Septic shock from Klebsiella UTI with Klebsiella Bacteremia
- noted s/p left URS/LL/stone extraction/stent exchange 09/23 (uncomplicated)
- ID and Urology following
- continue Rocephin per ID; follow repeat cultures
- s/p pressors. weaned to off. Continue IVF per sepsis protocol
Obstructive CHINEDU - resolved
Migraine Headaches
- Continue prophylactic regimen with Topamax. s/p Imitrex with resolved headache
Anxiety/Depression
- Continue Effexor.
- clonazepam and diazepam continued
iron def anemia
- ferrous sulfate continued
overactive bladder
- Gemtesa continued
GERD / Neville's Esophagus
- Stable. continue daily PPI.
Hypothyroidism
- Stable. continue T4 supplementation.
History of HSV
- Continue acyclovir prophylaxis.
DVT Prophylaxis: SCDs
Code Status: Full
More than 30 minutes spent in discharge including
Final examination of the patient
Summarizing hospital stay
Instructions for continuing care to all relevant caregivers
Preparation of discharge records, prescriptions, and referral forms
Total time spent (in minutes):42
Anticipated Discharge: Today
Subjective/Interval History
-
Date of Service: September 28, 2023
no complaints
Objective Data
-
Labs:
Laboratory Results
09/28/23 09/28/23
04:59 05:00
WBC 10.3
Hgb 12.5
Hct 35.8 L
Plt Count 251 D
Sodium 142
Potassium 3.8
Chloride 118 H
Carbon Dioxide 18 L
BUN 4 L
Creatinine 0.8
Glucose 86
Calcium 8.8
Vital Signs:
Vital Signs
Temp Pulse Resp BP Pulse Ox
98.1 F 78 18 138/83 96
09/28/23 01:22 09/28/23 01:22 09/28/23 01:22 09/28/23 01:22 09/28/23 01:22
I&O
09/27/23 09/28/23 09/29/23
06:59 06:59 06:59
Intake Total 2534.2 / 2634.2 1899
Output Total 1550 / 1550
Balance 984.2 / 1084.2 1899
Physical Exam
-
General: No Apparent Distress
HEENT: Normocephalic and Atraumatic
Respiratory: Negative Wheezes or Rales
Cardiac: Regular Rhythm and S1/S2
GI: Soft
Neuro: AO x 3
Hematologic / Lymphatic: No Lymphadenopathy
Psych: Calm
Data Reviewed
-
Total Time Spent with Patient (in minutes): 42
Labs: Labs Reviewed by me
[2023-09-28] MEDS: DETROL LA 4 MG PO (08:24)
[2023-09-28] MEDS: EFFEXOR XR 150 MG PO (08:24)
[2023-09-28] MEDS: ZYRTEC 10 MG PO (08:24)
[2023-09-28] MEDS: PROTONIX 40 MG PO (08:24)
[2023-09-28] MEDS: TOPAMAX 200 MG PO (08:25)
[2023-09-28] MEDS: ZOVIRAX 400 MG PO (08:25)
[2023-09-28] MEDS: ProAmatine 5 MG PO ×2 (08:25→12:51)
[2023-09-28 08:29] VITALS: BP 108/72
--- NOTE | 2023-09-28 09:19 | W.PN.ID1 ---
Date of Service
Date of Service: September 28, 2023
Today's Communication
- continue ceftriaxone.
-at time of discharge, can dc on cipro 500mg po bid to complete 14 day total course through 10/08/23
Assessment / Plan
# Left obstructive uropathy s/p elective ureteroscopy/laser lithotripsy/stone extraction/stent exchange (09/24/23)
# Post-procedure Klebsiella bacteremia
# s/p Septic shock
# hx Klebsiella complicated UTI/bacteremia in the past
- repeat blood cx's x2 neg to date
-Leukocytosis and fever resolved.
- continue ceftriaxone.
-at time of discharge, can dc on cipro 500mg po bid to complete 14 day total course through 10/08/23
#Additional Past Medical History:
Hypothyroidism
HTN
Anxiety/depression
Migraines
Overactive bladder
Nephrolithiasis/obstructive uropathy's
Klebsiella UTI/bacteremia
Genital HSV
Left knee surgery
Chief Complaint
-: UTI and Bacteremia
Subjective / Review of Systems
Feeling better. Has 'twinges' of left flank discomfort.
Vital Signs / Physical Exam
Vital Signs
Vital Signs
Temp Pulse Resp BP Pulse Ox
98.3 F 79 20 108/72 97
09/28/23 07:30 09/28/23 08:25 09/28/23 07:30 09/28/23 08:25 09/28/23 07:30
Physical Exam
Constitutional: No Acute Distress
Cardiovascular: Regular Rate and S1/S2
Gastrointestinal: Soft, Non Tender and Non Distended
Genito-Urinary: Negative CVA Tenderness
Extremities: Negative Edema
Neurological: AO x 3
Objective Data
Lab Data
Lab Results
09/28/23 05:00
09/28/23 04:59
Estimated Creat Clear 69 ml/min 09/28/23 04:59
Lactic Acid 1.0 mmol/L (0.7-2.0) 09/26/23 19:16
Most recent labs reviewed.
Micro Results:
09/26/23 10:52 Blood Culture - Preliminary
Blood/Venous No Growth in 24 hours- Final report to follow
09/26/23 10:52 Blood Culture - Preliminary
Blood/Venous No Growth in 24 hours- Final report to follow
09/24/23 19:42 Blood Culture - Preliminary
Blood/Venous Klebsiella pneumoniae
Gram Stain - Preliminary
09/24/23 17:31 Blood Culture - Preliminary
Blood/Venous Klebsiella pneumoniae
Gram Stain - Preliminary
09/24/23 22:27 Urine Culture - Final
Urine NO GROWTH
[2023-09-28] MEDS: STERILE WATER FOR INJECTION 20 ML IV (12:50)
[2023-09-28] MEDS: FEOSOL 325 MG PO (12:50)
[2023-09-28] MEDS: ROCEPHIN 2000 MG IV (12:50)
--- NOTE | 2023-09-28 13:03 | W.PN.UPDATE ---
Addendum entered and electronically signed by Gerald Beaver MD 09/28/23 15:04:
Discussed plan of care w/ spouse (Don) via telephone.
Original Note:
Update Note
Progress Note Update
Obstructing left ureteral stone s/p emergent stent placement
s/p left URS/LL/stone extraction/stent exchange 09/23
Post-procedure urosepsis w/ Klebsiella bacteremia
H/o Klebsiella urosepsis and bacteremia (02/2023, 08/2023)
Afebrile, HDS
WBC normalized
Cr WNL
Repeat BCx x2 NG
- F/U for cysto/stent removal in office 10/05/23 (scheduled) - given continuous abx therapy, no indication for pre-procedure prophylaxis
- Metabolic stone testing (24 hr urine) to be coordinated as outpatient for stone prevention
- PO Cipro 500 mg BID x14 day total course (through 10/08/23) per ID
--- NOTE | 2023-09-28 13:29 | W.DS.TRANS ---
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
-
Discharge Instructions:
Sleep Apnea Risk Low
Discharge Diagnosis/Procedures Septic shock from Klebsiella UTI with Klebsiella
Bacteremia. Recent left URS/LL/stone extraction
/stent exchange 09/23
Diet Regular
Activity As tolerated
Bathing Restrictions None
Instructions:
Stand-Alone Forms:
Changes to Home Medications: No
Discharge Medications:
DC Medications w/original date entered in [employer]
diazepam 5 mg tablet 5 mg PO HS ANXIETY/SLEEP 04/26/15
levothyroxine 88 mcg tablet 88 mcg PO DAILY HYPOTHYROIDISM 04/26/15
acyclovir 400 mg tablet 400 mg PO BID HERPES PROPHYLAXIS 02/15/23
cetirizine 10 mg tablet (Zyrtec) 10 mg PO DAILY allergies 02/15/23
clonazepam 0.5 mg tablet 0.25 mg PO HS PRN sleep/anxiety 02/15/23
omeprazole 40 mg capsule,delayed release 40 mg PO DAILY Gastrointestinal Issue 02/15/23
topiramate 200 mg tablet 200 mg PO BID MIGRAINES 02/15/23
venlafaxine 150 mg capsule,extended release 24 hr 150 mg PO BID DEPRESSION/ANXIETY 02/15/23
acetaminophen 325 mg tablet 650 mg (2 x 325 mg) PO Q4HPRN PRN mild pain #0 tabs 02/18/23
ferrous sulfate 325 mg (65 mg iron) tablet (FeroSul) 325 mg PO DAILY@1300 anemia 09/23/23
vibegron 75 mg tablet (Gemtesa) 75 mg PO DAILY OAB 09/23/23
ciprofloxacin HCl 500 mg tablet 500 mg PO BID #20 tabs 09/28/23
Home Medication Changes
Pending Results: No
Total time spent discharging patient (in min): 41
[2023-09-28 13:32] VITALS: BP 107/54
--- NOTE | 2023-09-28 13:58 | CM ---
Patient has been medically cleared for discharge home with no additional skilled services. Patient has arranged for transport home.
[2023-09-28 15:30] VITALS: BP 126/77
[2023-09-29 08:51] LABS: Stone Analysis Mass 2 mg
== END 2023-09-28 16:40 | disposition home or self-care (01) | DRG 853 ==
LOC: 2 NORTH 18:02
PROVIDERS: Nurse Practitioner Gerontology; Registered Nurse; Surgery; ADMITTING PHYSICIAN Internal Medicine; ATTENDING PHYSICIAN Internal Medicine; CONSULT PHYSICIAN Internal Medicine Infectious Disease
PROC: 0T778DZ Dilation of Left Ureter with Intraluminal Device, Via Natural or Artificial Opening Endoscopic (ICD-10-PCS; 2023-09-24)
PROC: 0TP98DZ Removal of Intraluminal Device from Ureter, Via Natural or Artificial Opening Endoscopic (ICD-10-PCS; 2023-09-24)
PROC: 0TC78ZZ Extirpation of Matter from Left Ureter, Via Natural or Artificial Opening Endoscopic (ICD-10-PCS; 2023-09-24)
PROC: 3E033XZ Introduction of Vasopressor into Peripheral Vein, Percutaneous Approach (ICD-10-PCS; 2023-09-25)
DX: A41.89 Other specified sepsis (principal); R65.21 Severe sepsis with septic shock; N39.0 Urinary tract infection, site not specified; N17.9 Acute kidney failure, unspecified; N20.1 Calculus of ureter; G43.909 Migraine, unspecified, not intractable, without status migrainosus; F32.A Depression, unspecified; F41.9 Anxiety disorder, unspecified; D50.9 Iron deficiency anemia, unspecified; N32.81 Overactive bladder; K21.9 Gastro-esophageal reflux disease without esophagitis; K22.70 Barrett's esophagus without dysplasia; E03.9 Hypothyroidism, unspecified; B00.9 Herpesviral infection, unspecified; B96.1 Klebsiella pneumoniae [K. pneumoniae] as the cause of diseases classified elsewhere; Z96.0 Presence of urogenital implants; Z79.890 Hormone replacement therapy; Z79.899 Other long term (current) drug therapy
CPT/HCPCS: 74018; 76000; 80048; 82365; 82533; 83605; 85025; 85027; 87040; 87086; 87149; 87186; 87205; 93005; A4300; C1758; C1769; C1894; C2617